=== PATIENT | male | born 1935 | race Caucasian/White ===

== ENCOUNTER → 2017-07-23 09:23 | Outpatient (CLI) | payer MEDICARE, SELFPAY ==
[2017-07-23 12:19] LABS: Absolute Lymphocyte Count 1.07 X10^3/ul (0.83-4.51); Absolute Neutrophil Count 1.6 X10^3/uL (2.0-7.7); Basophil# 0.03 X10^3/uL; Basophil% 0.9 % (0-1); Eosinophil# 0.13 X10^3/uL; Eosinophils% 3.9 % (0-5); Hematocrit 42.8 % (40-54); Hemoglobin 14.1 g/dl (13.0-16.5); Lymphocyte # 1.07 X10^3/ul (4.0); Mean Corp Hgb Conc 32.9 g/gl (32-36); Mean Corpuscular Hgb 33.5 pg (27.0-32.0); Mean Corpuscular Volume 101.7 fL (80-94); Mean Platelet Vol. 10.8 fl (6.2-12.0); Monocyte# 0.47 X10^3/uL; Monocyte% 14.1 % (0-10); Neutrophil # 1.63 X10^3/uL (2.7-7.7); Neutrophil % 48.8 % (47-70); Platelet Count 111 K/mm3 (150-450); RBC Distribution Width CV 12.7 % (11.6-14.6); RBC Distribution Width SD 47.1 fl (35.1-43.9); Red Blood Count 4.21 M/mm3 (4.6-6.2); White Blood Count 3.3 K/mm3 (4.4-11.0)
[2017-07-23 12:26] LABS: POSITIVE COUNT NO; POSITIVE DIFFERENTIAL NO; POSITIVE MORPHOLOGY NO
[2017-07-23 12:38] LABS: ALB/GLOB Ratio 1.4 RATIO (0.9-2.4); AST(SGOT) 19 U/L (15-37); Alanine Aminotransfer ALT/SGPT 22 U/L (16-61); Albumin, Serum 3.9 g/dL (3.2-5.0); Alkaline Phosphatase 62 U/L (45-117); Anion Gap 7 (5-15); BUN 17 mg/dL (7-18); BUN/Creat Ratio 14.9 RATIO (10-20); Calcium,Total 8.6 mg/dL (8.5-10.1); Chloride 109 mmol/L (98-107); Creatinine, Serum 1.14 mg/dL (0.70-1.30); EST Glomerular Filtration Rate 65 mL/min (>60); Est Glom Filt Rate - Afr Amer 79 mL/min (>60); Globulin 2.7 g/dL (2.2-4.2); Glucose 95 mg/dL (74-106); Potassium 4.4 mmol/L (3.5-5.1); Protein, Total 6.6 g/dL (6.4-8.2); Sodium Level 143 mmol/L (136-145)
== END ==
PROVIDERS: Family Provider Family Medicine Geriatric Medicine; PCP Family Medicine Geriatric Medicine; Visit Provider Internal Medicine Rheumatology
DX: M06.4 Inflammatory polyarthropathy (principal); M18.0 Bilateral primary osteoarthritis of first carpometacarpal joints; E78.5 Hyperlipidemia, unspecified; G47.33 Obstructive sleep apnea (adult) (pediatric); Z79.899 Other long term (current) drug therapy; Z86.718 Personal history of other venous thrombosis and embolism
CPT/HCPCS: 36415; 80053; 85025

== ENCOUNTER → 2017-08-09 11:23 | Outpatient (CLI) | payer MEDICARE, SELFPAY ==
[2017-08-09 13:07] LABS: Absolute Lymphocyte Count 1.01 X10^3/ul (0.83-4.51); Absolute Neutrophil Count 2.2 X10^3/uL (2.0-7.7); Basophil# 0.03 X10^3/uL; Basophil% 0.8 % (0-1); Eosinophil# 0.11 X10^3/uL; Eosinophils% 2.8 % (0-5); Hematocrit 40.5 % (40-54); Hemoglobin 13.7 g/dl (13.0-16.5); Lymphocyte # 1.01 X10^3/ul (4.0); Lymphocyte % 25.9 % (19-41); Mean Corp Hgb Conc 33.8 g/gl (32-36); Mean Corpuscular Hgb 34.3 pg (27.0-32.0); Mean Corpuscular Volume 101.5 fL (80-94); Mean Platelet Vol. 10.9 fl (6.2-12.0); Monocyte# 0.55 X10^3/uL; Monocyte% 14.1 % (0-10); Neutrophil % 56.4 % (47-70); Platelet Count 114 K/mm3 (150-450); RBC Distribution Width CV 12.1 % (11.6-14.6); RBC Distribution Width SD 44.5 fl (35.1-43.9); Red Blood Count 3.99 M/mm3 (4.6-6.2); White Blood Count 3.9 K/mm3 (4.4-11.0)
[2017-08-09 13:10] LABS: POSITIVE COUNT NO; POSITIVE DIFFERENTIAL NO; POSITIVE MORPHOLOGY NO
[2017-08-09 13:17] LABS: ALB/GLOB Ratio 1.4 RATIO (0.9-2.4); AST(SGOT) 20 U/L (15-37); Alanine Aminotransfer ALT/SGPT 21 U/L (16-61); Albumin, Serum 3.8 g/dL (3.2-5.0); Alkaline Phosphatase 71 U/L (45-117); Anion Gap 6 (5-15); BUN 22 mg/dL (7-18); BUN/Creat Ratio 17.3 RATIO (10-20); Calcium,Total 8.6 mg/dL (8.5-10.1); Chloride 107 mmol/L (98-107); Creatinine, Serum 1.27 mg/dL (0.70-1.30); EST Glomerular Filtration Rate 58 mL/min (>60); Est Glom Filt Rate - Afr Amer 70 mL/min (>60); Globulin 2.8 g/dL (2.2-4.2); Glucose 92 mg/dL (74-106); Potassium 4.6 mmol/L (3.5-5.1); Protein, Total 6.6 g/dL (6.4-8.2); Sodium Level 138 mmol/L (136-145)
[2017-08-10 10:29] LABS: Vitamin D,25 Hydroxy 32.7 ng/mL (29.95-100.01)
== END ==
PROVIDERS: Family Provider Family Medicine Geriatric Medicine; PCP Family Medicine Geriatric Medicine; Visit Provider Family Medicine Geriatric Medicine
DX: E23.6 Other disorders of pituitary gland (principal); E55.9 Vitamin D deficiency, unspecified; R53.83 Other fatigue
CPT/HCPCS: 36415; 80053; 82306; 84403; 84443; 85025

== ENCOUNTER → 2017-09-05 11:33 | Outpatient (CLI) | payer MEDICARE, SELFPAY ==
--- NOTE | 2017-09-05 11:37 | RAD_ITS ---
STUDY: X-RAY - LUMBAR SPINE REASON FOR EXAM: Male, 81 years old. Low back pain. TECHNIQUE: 3 view(s) of the lumbar spine were obtained. COMPARISON: 11/21/2012 FINDINGS: There is straightening. There is normal alignment. There is mild scoliosis to the right. There are no compression fractures or acute abnormalities. There is moderate to severe multilevel degenerative disc disease that appears worse than prior exam. There is multilevel facet joint degenerative disease. RAD/Lumbar Spine 2 or 3 Views IMPRESSION: No acute abnormality. Multilevel moderate to severe degenerative changes. Electronically Signed: Jose Moraes MD at 20:19 EDT , Service support ,
== END ==
PROVIDERS: Family Provider Family Medicine Geriatric Medicine; PCP Family Medicine Geriatric Medicine; Visit Provider Anesthesiology Pain Medicine
DX: M54.9 Dorsalgia, unspecified (principal); M79.669 Pain in unspecified lower leg
CPT/HCPCS: 72100

== ENCOUNTER → 2018-01-07 10:16 | Outpatient (CLI) | payer MEDICARE, SELFPAY ==
[2018-01-07 12:19] LABS: Absolute Lymphocyte Count 1.03 X10^3/ul (0.83-4.51); Absolute Neutrophil Count 2.3 X10^3/uL (2.0-7.7); Basophil# 0.03 X10^3/uL; Basophil% 0.7 % (0-1); Eosinophil# 0.17 X10^3/uL; Eosinophils% 4.1 % (0-5); Hematocrit 44.8 % (40-54); Hemoglobin 14.8 g/dl (13.0-16.5); Lymphocyte # 1.03 X10^3/ul (4.0); Lymphocyte % 25.1 % (19-41); Mean Corpuscular Hgb 33.6 pg (27.0-32.0); Mean Corpuscular Volume 101.6 fL (80-94); Mean Platelet Vol. 11.1 fl (6.2-12.0); Monocyte# 0.57 X10^3/uL; Monocyte% 13.9 % (0-10); Neutrophil # 2.29 X10^3/uL (2.7-7.7); Neutrophil % 55.7 % (47-70); Platelet Count 115 K/mm3 (150-450); RBC Distribution Width CV 12.7 % (11.6-14.6); RBC Distribution Width SD 46.9 fl (35.1-43.9); Red Blood Count 4.41 M/mm3 (4.6-6.2); White Blood Count 4.1 K/mm3 (4.4-11.0)
[2018-01-07 12:22] LABS: POSITIVE COUNT NO; POSITIVE DIFFERENTIAL NO; POSITIVE MORPHOLOGY NO
[2018-01-07 12:55] LABS: ALB/GLOB Ratio 1.2 RATIO (0.9-2.4); AST(SGOT) 21 U/L (15-37); Alanine Aminotransfer ALT/SGPT 21 U/L (16-61); Albumin, Serum 3.6 g/dL (3.2-5.0); Alkaline Phosphatase 73 U/L (45-117); Anion Gap 6 (5-15); BUN 16 mg/dL (7-18); BUN/Creat Ratio 13.2 RATIO (10-20); Calcium,Total 8.5 mg/dL (8.5-10.1); Chloride 105 mmol/L (98-107); Creatinine, Serum 1.21 mg/dL (0.70-1.30); EST Glomerular Filtration Rate 61 mL/min (>60); Est Glom Filt Rate - Afr Amer 74 mL/min (>60); Glucose 100 mg/dL (74-106); Potassium 4.3 mmol/L (3.5-5.1); Protein, Total 6.6 g/dL (6.4-8.2); Sodium Level 140 mmol/L (136-145)
== END ==
PROVIDERS: Family Provider Family Medicine Geriatric Medicine; PCP Family Medicine Geriatric Medicine; Referring Provider Internal Medicine Rheumatology; Visit Provider Internal Medicine Rheumatology
DX: M06.4 Inflammatory polyarthropathy (principal); M18.0 Bilateral primary osteoarthritis of first carpometacarpal joints; E78.5 Hyperlipidemia, unspecified; G47.33 Obstructive sleep apnea (adult) (pediatric); Z86.718 Personal history of other venous thrombosis and embolism
CPT/HCPCS: 36415; 80053; 85025

== ENCOUNTER → 2018-02-01 10:04 | Outpatient (CLI) | payer MEDICARE, SELFPAY ==
[2018-02-01 12:07] LABS: Absolute Lymphocyte Count 0.88 X10^3/ul (0.83-4.51); Absolute Neutrophil Count 1.6 X10^3/uL (2.0-7.7); Basophil# 0.04 X10^3/uL; Basophil% 1.4 % (0-1); Eosinophil# 0.06 X10^3/uL; Eosinophils% 2.1 % (0-5); Hematocrit 47.1 % (40-54); Hemoglobin 15.3 g/dl (13.0-16.5); Lymphocyte # 0.88 X10^3/ul (4.0); Lymphocyte % 30.2 % (19-41); Mean Corp Hgb Conc 32.5 g/gl (32-36); Mean Corpuscular Hgb 33.4 pg (27.0-32.0); Mean Corpuscular Volume 102.8 fL (80-94); Mean Platelet Vol. 11.4 fl (6.2-12.0); Monocyte# 0.36 X10^3/uL; Monocyte% 12.4 % (0-10); Neutrophil # 1.56 X10^3/uL (2.7-7.7); Neutrophil % 53.6 % (47-70); Platelet Count 117 K/mm3 (150-450); RBC Distribution Width CV 13.2 % (11.6-14.6); RBC Distribution Width SD 49.2 fl (35.1-43.9); Red Blood Count 4.58 M/mm3 (4.6-6.2); White Blood Count 2.9 K/mm3 (4.4-11.0)
[2018-02-01 12:17] LABS: POSITIVE COUNT NO; POSITIVE DIFFERENTIAL NO; POSITIVE MORPHOLOGY NO
[2018-02-01 12:22] LABS: Vitamin D,25 Hydroxy 26.8 ng/mL (29.95-100.01)
[2018-02-01 12:26] LABS: ALB/GLOB Ratio 1.4 RATIO (0.9-2.4); AST(SGOT) 20 U/L (15-37); Alanine Aminotransfer ALT/SGPT 29 U/L (16-61); Albumin, Serum 3.9 g/dL (3.2-5.0); Alkaline Phosphatase 65 U/L (45-117); Anion Gap 8 (5-15); BUN 30 mg/dL (7-18); BUN/Creat Ratio 19.7 RATIO (10-20); Calcium,Total 8.6 mg/dL (8.5-10.1); Chloride 108 mmol/L (98-107); Creatinine, Serum 1.52 mg/dL (0.70-1.30); EST Glomerular Filtration Rate 47 mL/min (>60); Est Glom Filt Rate - Afr Amer 57 mL/min (>60); Globulin 2.7 g/dL (2.2-4.2); Glucose 97 mg/dL (74-106); Potassium 4.5 mmol/L (3.5-5.1); Protein, Total 6.6 g/dL (6.4-8.2); Sodium Level 143 mmol/L (136-145); Thyroid Stim Hormone (TSH) 2.12 uIU/mL (0.358-3.74)
== END ==
PROVIDERS: Family Provider Family Medicine Geriatric Medicine; PCP Family Medicine Geriatric Medicine; Visit Provider Family Medicine Geriatric Medicine
DX: E23.6 Other disorders of pituitary gland (principal); E55.9 Vitamin D deficiency, unspecified; R53.83 Other fatigue
CPT/HCPCS: 36415; 80053; 82306; 84403; 84443; 85025

== ENCOUNTER → 2018-02-05 15:49 | Outpatient (CLI) | payer MEDICARE, SELFPAY ==
--- NOTE | 2018-02-05 | LES_PTH ---
PATIENT: BRY VO LOC: [facility] U#:[id number] AGE/SX: 89/M ROOM: RE02/05/[address]: Dr. Arpit Parkinson MD : 1935 BED: DIS: SPEC #: [id number] RECD: 02/05/18 10:29 STATUS: ADAM DON #: [id number] RADHA: 02/05/18 00:[address]: Arpit Parkinson Chi DEPT: SURGICAL PATHOLOGY RECD BY: Mina Landis Tissues: Skin of forearm, NOS Procedures: Surgery Specimen Level IV HEADER OPERATION: Not noted PRE-OP DIAGNOSIS: L98.9 TISSUE SUBMITTED: Left forearm MICROSCOPIC DIAGNOSIS Left forearm lesion, shave biopsy: Basal cell carcinoma with focal ulceration and associated inflammation, narrowly excised in the planes of sections examined. Solar elastosis. SJ:roxanne 02/08/18 MICROSCOPIC DESCRIPTION Slides are reviewed. GROSS DESCRIPTION Received in fixative is one container labeled with the patient's name and designated left forearm. The specimen consists of a shave biopsy of russell-white skin measuring 1 x 0.7 cm and 0.1 cm in thickness. The specimen is inked and submitted entirely in one cassette. It will be serially sectioned at the time of embedding. / SJ:roxanne 02/06/18 TC:0 [facility]: [id number]
== END ==
PROVIDERS: Family Provider Family Medicine Geriatric Medicine; PCP Family Medicine Geriatric Medicine; Visit Provider Family Medicine Geriatric Medicine
DX: C44.619 Basal cell carcinoma of skin of left upper limb, including shoulder (principal); L98.9 Disorder of the skin and subcutaneous tissue, unspecified
CPT/HCPCS: 88305

== ENCOUNTER → 2018-07-15 14:53 | Outpatient (CLI) | payer MEDICARE, SELFPAY ==
[2018-07-15 16:15] LABS: Absolute Lymphocyte Count 1.16 X10^3/ul (0.83-4.51); Absolute Neutrophil Count 2.1 X10^3/uL (2.0-7.7); Basophil# 0.05 X10^3/uL; Basophil% 1.3 % (0-1); Eosinophil# 0.18 X10^3/uL; Eosinophils% 4.6 % (0-5); Hematocrit 43.2 % (40-54); Lymphocyte # 1.16 X10^3/ul (4.0); Lymphocyte % 29.5 % (19-41); Mean Corp Hgb Conc 32.4 g/gl (32-36); Mean Corpuscular Hgb 33.2 pg (27.0-32.0); Mean Corpuscular Volume 102.4 fL (80-94); Mean Platelet Vol. 11.1 fl (6.2-12.0); Monocyte# 0.46 X10^3/uL; Monocyte% 11.7 % (0-10); Neutrophil # 2.07 X10^3/uL (2.7-7.7); Neutrophil % 52.6 % (47-70); Platelet Count 133 K/mm3 (150-450); RBC Distribution Width CV 13.3 % (11.6-14.6); RBC Distribution Width SD 50.1 fl (35.1-43.9); Red Blood Count 4.22 M/mm3 (4.6-6.2); White Blood Count 3.9 K/mm3 (4.4-11.0)
[2018-07-15 16:30] LABS: Vitamin D,25 Hydroxy 25.7 ng/mL (29.95-100.01)
[2018-07-15 16:33] LABS: ALB/GLOB Ratio 1.5 RATIO (0.9-2.4); AST(SGOT) 19 U/L (15-37); Alanine Aminotransfer ALT/SGPT 26 U/L (16-61); Albumin, Serum 4.1 g/dL (3.2-5.0); Alkaline Phosphatase 67 U/L (45-117); Anion Gap 6 (5-15); BUN 25 mg/dL (7-18); BUN/Creat Ratio 18.5 RATIO (10-20); Calcium,Total 8.8 mg/dL (8.5-10.1); Chloride 110 mmol/L (98-107); Creatinine, Serum 1.35 mg/dL (0.70-1.30); EST Glomerular Filtration Rate 54 mL/min (>60); Est Glom Filt Rate - Afr Amer 65 mL/min (>60); Globulin 2.7 g/dL (2.2-4.2); Glucose 100 mg/dL (74-106); Potassium 4.5 mmol/L (3.5-5.1); Protein, Total 6.8 g/dL (6.4-8.2); Sodium Level 143 mmol/L (136-145); Thyroid Stim Hormone (TSH) 1.53 uIU/mL (0.358-3.74)
[2018-07-15 16:36] LABS: POSITIVE COUNT NO; POSITIVE DIFFERENTIAL NO; POSITIVE MORPHOLOGY NO
== END ==
PROVIDERS: Family Provider Family Medicine Geriatric Medicine; PCP Family Medicine Geriatric Medicine; Visit Provider Family Medicine Geriatric Medicine
DX: E55.9 Vitamin D deficiency, unspecified (principal); R53.83 Other fatigue; E29.1 Testicular hypofunction; M06.4 Inflammatory polyarthropathy; M18.0 Bilateral primary osteoarthritis of first carpometacarpal joints; E78.5 Hyperlipidemia, unspecified; M47.897 Other spondylosis, lumbosacral region; G47.33 Obstructive sleep apnea (adult) (pediatric); Z86.718 Personal history of other venous thrombosis and embolism
CPT/HCPCS: 36415; 80053; 82306; 84403; 84443; 85025

== ENCOUNTER → 2019-01-06 11:15 | Outpatient (CLI) | payer MEDICARE, SELFPAY ==
[2018-09-12 11:37] VITALS: BMI 25.9
[2019-01-06 12:32] LABS: Basophil# 0.05 X10^3/uL; Basophil% 1.3 % (0-1); Eosinophil# 0.14 X10^3/uL; Eosinophils% 3.7 % (0-5); Hematocrit 48.3 % (40-54); Hemoglobin 15.5 g/dL (13.0-16.5); Lymphocyte % 29.1 % (19-41); Mean Corp Hgb Conc 32.1 g/dL (32-36); Mean Corpuscular Hgb 33.3 pg (27.0-32.0); Mean Corpuscular Volume 103.6 fL (80-94); Mean Platelet Vol. 10.7 fl (6.2-12.0); Monocyte# 0.52 X10^3/uL; Monocyte% 13.8 % (0-10); NRBC Flagged by Analyzer 0 % (0-5); Neutrophil # 1.95 X10^3/uL (2.7-7.7); Neutrophil % 51.6 % (47-70); Platelet Count 106 K/mm3 (150-450); RBC Distribution Width CV 13.2 % (11.6-14.6); RBC Distribution Width SD 50.4 fl (35.1-43.9); Red Blood Count 4.66 M/mm3 (4.6-6.2); White Blood Count 3.8 K/mm3 (4.4-11.0)
[2019-01-06 13:08] LABS: Vitamin D,25 Hydroxy 25.6 ng/mL (29.95-100.01)
[2019-01-06 13:09] LABS: ALB/GLOB Ratio 1.3 RATIO (0.9-2.4); AST(SGOT) 21 U/L (15-37); Alanine Aminotransfer ALT/SGPT 24 U/L (16-61); Albumin, Serum 3.7 g/dL (3.2-5.0); Alkaline Phosphatase 62 U/L (45-117); Anion Gap 4 (5-15); BUN 24 mg/dL (7-18); BUN/Creat Ratio 17.4 RATIO (10-20); Calcium,Total 8.8 mg/dL (8.5-10.1); Chloride 107 mmol/L (98-107); Cholesterol 143 mg/dL (200); Creatinine, Serum 1.38 mg/dL (0.70-1.30); EST Glomerular Filtration Rate 52 mL/min (>60); Est Glom Filt Rate - Afr Amer 63 mL/min (>60); Globulin 2.8 g/dL (2.2-4.2); Glucose 104 mg/dL (74-106); High Density Lipoprotein 66 mg/dL; Potassium 5.3 mmol/L (3.5-5.1); Protein, Total 6.5 g/dL (6.4-8.2); Sodium Level 139 mmol/L (136-145); Thyroid Stim Hormone (TSH) 2.54 uIU/mL (0.358-3.74); Triglycerides 70 mg/dL; Uric Acid 7.2 mg/dL (3.5-7.2); Very Low Density Lipoprotein 14 mg/dL (5-40)
== END ==
PROVIDERS: Family Provider Family Medicine Geriatric Medicine; PCP Family Medicine Geriatric Medicine; Visit Provider Family Medicine Geriatric Medicine
DX: E78.5 Hyperlipidemia, unspecified (principal); E23.6 Other disorders of pituitary gland; E55.9 Vitamin D deficiency, unspecified; M10.9 Gout, unspecified; R53.83 Other fatigue
CPT/HCPCS: 36415; 80053; 80061; 82306; 84403; 84443; 84550; 85025

== ENCOUNTER → 2019-01-08 13:49 | Outpatient (CLI) | payer MEDICARE, SELFPAY ==
[2018-09-12 11:37] VITALS: BMI 25.9
[2019-01-08 18:12] LABS: Anion Gap 5 (5-15); BUN 25 mg/dL (7-18); BUN/Creat Ratio 17.1 RATIO (10-20); Calcium,Total 8.5 mg/dL (8.5-10.1); Chloride 106 mmol/L (98-107); Creatinine, Serum 1.46 mg/dL (0.70-1.30); EST Glomerular Filtration Rate 49 mL/min (>60); Est Glom Filt Rate - Afr Amer 59 mL/min (>60); Glucose 106 mg/dL (74-106); Potassium 4.4 mmol/L (3.5-5.1); Sodium Level 140 mmol/L (136-145)
== END ==
PROVIDERS: Family Provider Family Medicine Geriatric Medicine; PCP Family Medicine Geriatric Medicine; Visit Provider Family Medicine Geriatric Medicine
DX: R53.83 Other fatigue (principal)
CPT/HCPCS: 36415; 80048

== ENCOUNTER → 2019-01-22 13:54 | Outpatient (CLI) | payer MEDICARE, SELFPAY ==
[2018-09-12 11:37] VITALS: BMI 25.9
[2019-01-22 15:26] LABS: Anion Gap 9 (5-15); BUN 26 mg/dL (7-18); BUN/Creat Ratio 17.2 RATIO (10-20); Calcium,Total 8.4 mg/dL (8.5-10.1); Chloride 107 mmol/L (98-107); Creatinine, Serum 1.51 mg/dL (0.70-1.30); EST Glomerular Filtration Rate 47 mL/min (>60); Est Glom Filt Rate - Afr Amer 57 mL/min (>60); Glucose 104 mg/dL (74-106); Potassium 4.5 mmol/L (3.5-5.1); Sodium Level 138 mmol/L (136-145)
== END ==
PROVIDERS: Family Provider Family Medicine Geriatric Medicine; PCP Family Medicine Geriatric Medicine; Visit Provider Family Medicine Geriatric Medicine
DX: E87.5 Hyperkalemia (principal)
CPT/HCPCS: 36415; 80048

== ENCOUNTER → 2019-07-01 14:03 | Outpatient (CLI) | payer MEDICARE, SELFPAY ==
[2018-09-12 11:37] VITALS: BMI 25.9
[2019-07-01 16:39] LABS: Absolute Lymphocyte Count 1.05 X10^3/uL (0.83-4.51); Absolute Neutrophil Count 2.6 X10^3/uL (2.0-7.7); Basophil# 0.04 X10^3/uL; Basophil% 0.9 % (0-1); Eosinophil# 0.11 X10^3/uL; Eosinophils% 2.6 % (0-5); Hematocrit 43.8 % (40-54); Hemoglobin 14.4 g/dL (13.0-16.5); Lymphocyte # 1.05 X10^3/ul (4.0); Lymphocyte % 24.6 % (19-41); Mean Corp Hgb Conc 32.9 g/dL (32-36); Mean Corpuscular Volume 103.3 fL (80-94); Mean Platelet Vol. 10.7 fl (6.2-12.0); Monocyte# 0.44 X10^3/uL; Monocyte% 10.3 % (0-10); NRBC Flagged by Analyzer 0 % (0-5); Neutrophil # 2.61 X10^3/uL (2.7-7.7); Neutrophil % 61.1 % (47-70); Platelet Count 138 K/mm3 (150-450); RBC Distribution Width CV 12.8 % (11.6-14.6); RBC Distribution Width SD 48.7 fl (35.1-43.9); Red Blood Count 4.24 M/mm3 (4.6-6.2); White Blood Count 4.3 K/mm3 (4.4-11.0)
[2019-07-01 16:50] LABS: Anion Gap 7 (5-15); BUN 18 mg/dL (7-18); BUN/Creat Ratio 15.3 RATIO (10-20); Calcium,Total 8.6 mg/dL (8.5-10.1); Chloride 106 mmol/L (98-107); Creatinine, Serum 1.18 mg/dL (0.70-1.30); EST Glomerular Filtration Rate 62 mL/min (>60); Est Glom Filt Rate - Afr Amer 76 mL/min (>60); Glucose 123 mg/dL (74-106); Potassium 4.4 mmol/L (3.5-5.1); Sodium Level 139 mmol/L (136-145)
== END ==
PROVIDERS: PCP Family Medicine Geriatric Medicine; Visit Provider Family Medicine Geriatric Medicine
DX: R42 Dizziness and giddiness (principal)
CPT/HCPCS: 36415; 80048; 85025

== ENCOUNTER → 2019-07-01 15:22 | Outpatient (CLI) | payer MEDICARE, SELFPAY ==
[2018-09-12 11:37] VITALS: BMI 25.9
--- NOTE | 2019-07-01 15:27 | CT_ITS ---
STUDY: CT BRAIN WITHOUT CONTRAST REASON FOR EXAM: Male, 83 years old. DIZZINESS RADIATION DOSAGE (If Supplied By Facility): CTDIvol = ( 44.99 ) mGy, DLP = ( 829.85 ) mGycm TECHNIQUE: Transaxial CT imaging of the brain was performed without administration of intravenous contrast material. Individualized dose optimization techniques were used for this CT. COMPARISON: Comparison is made with prior study dated September 21, 2016. FINDINGS: Normal soft tissue structures. Normal calvarium. There is mild cerebral atrophy with widening of the extra-axial spaces and ventricular dilatation. Normal white matter tracts of the cerebral hemispheres. Normal basal ganglia and thalami. Normal brainstem. Normal cerebellum. There is no intracranial hemorrhage. There are no findings of an acute ischemic infarction. Normal visualized paranasal sinuses. CT/Brain/Head without Contrast IMPRESSION: Chronic involutional changes of the brain. Electronically Signed: Kishor Marie, at 15:51 EDT , Service support ,
== END ==
PROVIDERS: PCP Family Medicine Geriatric Medicine; Referring Provider Family Medicine Geriatric Medicine; Visit Provider Family Medicine Geriatric Medicine
DX: R42 Dizziness and giddiness (principal)
CPT/HCPCS: 36415; 70450; 80048; 85025

== ENCOUNTER → 2019-07-15 17:18 | Outpatient (CLI) | payer MEDICARE, SELFPAY ==
[2018-09-12 11:37] VITALS: BMI 25.9
--- NOTE | 2019-07-15 17:23 | MRI_ITS ---
STUDY: MRI BRAIN WITH AND WITHOUT CONTRAST REASON FOR EXAM: Male, 83 years old. ataxia and blurred vision x 2 months TECHNIQUE: Standardized multiplanar fat and water weighted pulse sequences were obtained. 15ml Dotarem via IV was administered for the contrast portion of the examination. COMPARISON: October 10, 2016 CT of the brain July 01, 2019 FINDINGS: Moderate atrophy and minor periventricular white matter ischemic changes without mass effect or restricted diffusion.. Normal bilateral basal ganglia. Normal thalami. There is no extra-axial fluid accumulation. Normal flow voids within the major intracranial circulation suggesting patency by spin echo criteria. Normal venous enhancement. There is no enhancing intra-axial or extra-axial abnormality. Normal sella turcica, pituitary gland, infundibular stalk, optic chiasm and hypothalamus. Normal tectal plate and pineal gland. Empty sella deformity of uncertain clinical significance Normal midbrain, geovanny and medulla. Normal cerebellum. Normal basal cisterns. Normal bilateral temporal bones. Normal bilateral internal auditory canals. Fluid signal noted within the mastoid air cells bilaterally greater on the right consistent with inflammatory disease Postsurgical changes of the orbits.. Minor mucosal thickening of the maxillary and ethmoid sinuses bilaterally.. Normal calvarium and skull base. Normal visualized soft tissue structures. Normal visualized upper cervical spine. MRI/Brain W/WO Contrast IMPRESSION: Moderate atrophy and mild periventricular white matter ischemic changes without evidence for acute infarct. No no enhancing lesions. Specifically no evidence for acoustic or vestibular schwannoma. Incidental finding of bilateral mastoiditis greater on the right Electronically Signed: Simeon Cornell MD at 19:37 EDT , Service support ,
[2019-07-15 17:51] LABS: CREATININE FINGERSTICK 1.1 mg/dL (0.70-1.30); EGFR FINGERSTICK > 60.0000 mL/min (>60)
== END ==
PROVIDERS: PCP Family Medicine Geriatric Medicine; Referring Provider Otolaryngology; Visit Provider Otolaryngology
DX: R27.0 Ataxia, unspecified (principal)
CPT/HCPCS: 70553; A9575

== ENCOUNTER 2019-07-24 13:00 | Outpatient (RCR) | payer MEDICARE, SELFPAY ==
[2018-09-12 11:37] VITALS: BMI 25.9
--- NOTE | 2019-07-18 14:12 | HP.PTEVAL ---
Patient's Visit Information BRY VO is a 83 year old M referred to Physical Therapy by Jose Roman MD with a diagnosis of dizzyness. Date of Evaluation: 07/18/19 Physical Therapist: Mick Conway, MATTHEW, OCS, CSCS - Visit Plan Frequency: 1x/Week Duration: 4-6 Weeks Plan: weekly x 4-6 for. progression of adaptation exercises via HEP and monitor MSQ/balance as needed. - Subjective I am dizzy. All the time, has been that way two months. Had pneumonia in [place] quickly and got dizzy afterwards. It is up and down. Not spinning but dizzy described aas lightheaded blurriness.. Moving seems to be worse. Slight when he is not moving. Not worse with lying or sitting. No falls, feels unsteady at times. No cane or walker. It can be wrose after grocery store. - Pain Dizzy Pain Intensity (Out of 10): 5 Pain Intensity Range: 5, 6 - Objective Balance is good for his age. Trasnfers , gait and steps are normal. Oculomotor: VOR causes symptoms 7/10 x 20 seconds. Saccades slightly worse for 5 sec. Pursuit is normal. - skew eye deviation,- ocular tilt. no nystagmus with gaze or head shake. MSQ is no problem with any increasing his symptoms. 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 For Medicare and Medicare HMO plans, please review the plan of care and approve it. It will need to be FAXED BACK to us at [phone] for Medicare purposes. For Medicare only, by signing this I certify the plan of care. Please let me know if there are questions or concerns regarding this plan of care. Physician Signature: Date:
--- NOTE | 2019-10-02 11:10 | HP.PT.NRP ---
BRY VO was seen in my office for initial evaluation on 07/18/19. The following Plan of Care was established for this patient: Initial Frequency: 1x/Week Initial Duration: 4-6 Weeks Patient/Client Instruction: Educate patient on: Condition, Plan of Care For the Purpose of:: To increase tolerance to activity/condition/position For the Purpose of:: To increase tolerance to activity/condition/position This patient was last seen in our office 07/24/19. Pertinent comments regarding their Physical therapy will appear below: Pt seen two visits without improvement in PT. Plan was to f/u a week later and get back to doctor if still no better. Pt did not show up for that visit. at this point, it has been over 2 months and I will discontinue due to nonattendance. At this point I will be discontinuing this patient from physical therapy. I would be happy to see this patient again in the future if found appropriate by the physician. Thank you! Mick Conway, DPT, OCS, CSCS
== END 2019-07-24 19:00 | disposition home or self-care (01) ==
LOC: PT 13:00
PROVIDERS: PCP Family Medicine Geriatric Medicine; Referring Provider Otolaryngology; Visit Provider Otolaryngology
DX: R42 Dizziness and giddiness (principal)
CPT/HCPCS: 97110; 97161; 97530

== ENCOUNTER → 2019-08-20 10:05 | Outpatient (CLI) | payer MEDICARE, SELFPAY ==
[2018-09-12 11:37] VITALS: BMI 25.9
[2019-08-20 11:42] LABS: Absolute Lymphocyte Count 1.29 X10^3/uL (0.83-4.51); Absolute Neutrophil Count 1.8 X10^3/uL (2.0-7.7); Basophil# 0.05 X10^3/uL; Basophil% 1.3 % (0-1); Eosinophil# 0.17 X10^3/uL; Eosinophils% 4.5 % (0-5); Hematocrit 43.9 % (40-54); Hemoglobin 14.3 g/dL (13.0-16.5); Lymphocyte # 1.29 X10^3/ul (4.0); Lymphocyte % 33.8 % (19-41); Mean Corp Hgb Conc 32.6 g/dL (32-36); Mean Corpuscular Hgb 33.4 pg (27.0-32.0); Mean Corpuscular Volume 102.6 fL (80-94); Mean Platelet Vol. 10.6 fl (6.2-12.0); Monocyte# 0.48 X10^3/uL; Monocyte% 12.6 % (0-10); NRBC Flagged by Analyzer 0 % (0-5); Neutrophil # 1.82 X10^3/uL (2.7-7.7); Neutrophil % 47.5 % (47-70); Platelet Count 148 K/mm3 (150-450); RBC Distribution Width SD 45.7 fl (35.1-43.9); Red Blood Count 4.28 M/mm3 (4.6-6.2); White Blood Count 3.8 K/mm3 (4.4-11.0)
[2019-08-20 12:04] LABS: ALB/GLOB Ratio 1.4 RATIO (0.9-2.4); AST(SGOT) 15 U/L (15-37); Alanine Aminotransfer ALT/SGPT 21 U/L (16-61); Albumin, Serum 3.8 g/dL (3.2-5.0); Alkaline Phosphatase 73 U/L (45-117); Anion Gap 7 (5-15); BUN 27 mg/dL (7-18); BUN/Creat Ratio 18.6 RATIO (10-20); Calcium,Total 8.8 mg/dL (8.5-10.1); Chloride 105 mmol/L (98-107); Creatinine, Serum 1.45 mg/dL (0.70-1.30); EST Glomerular Filtration Rate 49 mL/min (>60); Est Glom Filt Rate - Afr Amer 60 mL/min (>60); Globulin 2.8 g/dL (2.2-4.2); Glucose 127 mg/dL (74-106); PSA,Total - Annual Screen 1.66 ng/mL (0.00-4.00); Potassium 4.7 mmol/L (3.5-5.1); Protein, Total 6.6 g/dL (6.4-8.2); Sodium Level 139 mmol/L (136-145); Thyroid Stim Hormone (TSH) 2.26 uIU/mL (0.358-3.74)
[2019-08-20 12:46] LABS: Vitamin D,25 Hydroxy 26.5 ng/mL
== END ==
PROVIDERS: PCP Family Medicine Geriatric Medicine; Visit Provider Family Medicine Geriatric Medicine
DX: E23.6 Other disorders of pituitary gland (principal); E55.9 Vitamin D deficiency, unspecified; M10.9 Gout, unspecified; R53.83 Other fatigue
CPT/HCPCS: 36415; 80053; 82306; 84153; 84443; 85025; G0103

== ENCOUNTER → 2019-09-29 13:45 | Outpatient (CLI) | payer MEDICARE, SELFPAY ==
[2018-09-12 11:37] VITALS: BMI 25.9
[2019-09-29 15:18] LABS: Absolute Lymphocyte Count 1.63 X10^3/uL (0.83-4.51); Absolute Neutrophil Count 2.7 X10^3/uL (2.0-7.7); Basophil# 0.06 X10^3/uL; Basophil% 1.2 % (0-1); Eosinophil# 0.09 X10^3/uL; Eosinophils% 1.8 % (0-5); Hematocrit 43.7 % (40-54); Hemoglobin 14.1 g/dL (13.0-16.5); Lymphocyte # 1.63 X10^3/ul (4.0); Lymphocyte % 31.7 % (19-41); Mean Corp Hgb Conc 32.3 g/dL (32-36); Mean Corpuscular Hgb 33.1 pg (27.0-32.0); Mean Corpuscular Volume 102.6 fL (80-94); Mean Platelet Vol. 11.1 fl (6.2-12.0); Monocyte# 0.63 X10^3/uL; Monocyte% 12.3 % (0-10); NRBC Flagged by Analyzer 0 % (0-5); Neutrophil # 2.71 X10^3/uL (2.7-7.7); Neutrophil % 52.6 % (47-70); Platelet Count 143 K/mm3 (150-450); RBC Distribution Width SD 45.1 fl (35.1-43.9); Red Blood Count 4.26 M/mm3 (4.6-6.2); White Blood Count 5.1 K/mm3 (4.4-11.0)
[2019-09-29 15:29] LABS: ALB/GLOB Ratio 1.4 RATIO (0.9-2.4); AST(SGOT) 18 U/L (15-37); Alanine Aminotransfer ALT/SGPT 21 U/L (16-61); Albumin, Serum 3.8 g/dL (3.2-5.0); Alkaline Phosphatase 93 U/L (45-117); Anion Gap 5 (5-15); BUN 26 mg/dL (7-18); Calcium,Total 8.6 mg/dL (8.5-10.1); Chloride 106 mmol/L (98-107); EST Glomerular Filtration Rate 56 mL/min (>60); Est Glom Filt Rate - Afr Amer 68 mL/min (>60); Globulin 2.8 g/dL (2.2-4.2); Glucose 96 mg/dL (74-106); Protein, Total 6.6 g/dL (6.4-8.2); Sodium Level 138 mmol/L (136-145)
== END ==
PROVIDERS: PCP Family Medicine Geriatric Medicine; Referring Provider Internal Medicine Rheumatology; Visit Provider Internal Medicine Rheumatology
DX: M06.4 Inflammatory polyarthropathy (principal); M18.0 Bilateral primary osteoarthritis of first carpometacarpal joints; E78.5 Hyperlipidemia, unspecified; G47.33 Obstructive sleep apnea (adult) (pediatric); M47.897 Other spondylosis, lumbosacral region; Z86.718 Personal history of other venous thrombosis and embolism
CPT/HCPCS: 36415; 80053; 85025

== ENCOUNTER → 2019-10-27 15:12 | Outpatient (CLI) | payer MEDICARE, SELFPAY ==
[2018-09-12 11:37] VITALS: BMI 25.9
--- NOTE | 2019-10-27 15:17 | US_ITS ---
STUDY: RENAL ULTRASOUND - COMPLETE REASON FOR EXAM: Male, 83 years old patient with chronic renal disease stage 3. TECHNIQUE: Ultrasound evaluation of the kidneys was performed with real-time and static montoya-scale imaging. COMPARISON: None. FINDINGS: RIGHT KIDNEY: Normal location of the right kidney, which is normal in size. The right kidney measures 10.0 x 4.4 x 4.9 cm. There is a normal cortex of the right kidney. The renal cortex measures 1.3 cm. There is no right renal mass or cyst. There are no right renal calculi. There is no right hydronephrosis. DISTAL RIGHT URETER: There is non-visualization of the distal right ureter. There is no demonstrated right ureterovesical junction calculus. There is no demonstrated right ureteral jet. LEFT KIDNEY: Normal location of the left kidney, which is normal in size. The left kidney measures 3.6 x 3.8 x 4.4 cm. There is diffuse thinning of the renal cortex. The renal cortex measures 0.8 cm. There is no left renal mass or cyst. There are no left renal calculi. There is no left hydronephrosis. DISTAL LEFT URETER: There is non-visualization of the distal left ureter. There is no demonstrated left ureterovesical junction calculus. There is a visualized left ureteral jet. AORTA: There is obscuration of the abdominal aorta by overlying bowel gas BLADDER: The distended urinary bladder has a volume of 279.8 ml. There is a normal wall thickness of the distended urinary bladder. There is no demonstrated mass within the urinary bladder. There are no demonstrated bladder calculi. US/Kidney and Bladder IMPRESSION: 1. Findings suggest sequela of the chronic left-sided renal insufficiency with atrophy. 2. No sonographic evidence for hydronephrosis. Electronically Signed: Kayy Zamora MD at 3:15 EDT , Service support ,
== END ==
PROVIDERS: PCP Family Medicine Geriatric Medicine; Referring Provider Internal Medicine Nephrology; Visit Provider Internal Medicine Nephrology
DX: N18.2 Chronic kidney disease, stage 2 (mild) (principal)
CPT/HCPCS: 76770

== ENCOUNTER → 2019-11-18 14:06 | Outpatient (CLI) | payer MEDICARE, SELFPAY ==
[2018-09-12 11:37] VITALS: BMI 25.9
[2019-11-18 15:49] LABS: Absolute Lymphocyte Count 1.21 X10^3/uL (0.83-4.51); Absolute Neutrophil Count 2.9 X10^3/uL (2.0-7.7); Basophil# 0.04 X10^3/uL; Basophil% 0.8 % (0-1); Eosinophil# 0.11 X10^3/uL; Eosinophils% 2.3 % (0-5); Hematocrit 41.4 % (40-54); Hemoglobin 14.3 g/dL (13.0-16.5); Lymphocyte # 1.21 X10^3/ul (4.0); Lymphocyte % 24.9 % (19-41); Mean Corp Hgb Conc 34.5 g/dL (32-36); Mean Corpuscular Hgb 35.2 pg (27.0-32.0); Mean Platelet Vol. 10.6 fl (6.2-12.0); Monocyte# 0.62 X10^3/uL; Monocyte% 12.8 % (0-10); NRBC Flagged by Analyzer 0 % (0-5); Neutrophil # 2.86 X10^3/uL (2.7-7.7); Neutrophil % 58.8 % (47-70); Platelet Count 152 K/mm3 (150-450); RBC Distribution Width CV 12.6 % (11.6-14.6); RBC Distribution Width SD 47.5 fl (35.1-43.9); Red Blood Count 4.06 M/mm3 (4.6-6.2); White Blood Count 4.9 K/mm3 (4.4-11.0)
[2019-11-18 16:11] LABS: Vitamin D,25 Hydroxy 39.8 ng/mL
[2019-11-18 16:19] LABS: ALB/GLOB Ratio 1.3 RATIO (0.9-2.4); AST(SGOT) 14 U/L (15-37); Alanine Aminotransfer ALT/SGPT 19 U/L (16-61); Albumin, Serum 3.7 g/dL (3.2-5.0); Alkaline Phosphatase 88 U/L (45-117); Anion Gap 3 (5-15); BUN 22 mg/dL (7-18); BUN/Creat Ratio 16.7 RATIO (10-20); Calcium,Total 8.8 mg/dL (8.5-10.1); Chloride 108 mmol/L (98-107); Creatinine, Serum 1.32 mg/dL (0.70-1.30); EST Glomerular Filtration Rate 55 mL/min (>60); Est Glom Filt Rate - Afr Amer 66 mL/min (>60); Globulin 2.8 g/dL (2.2-4.2); Glucose 114 mg/dL (74-106); Potassium 4.5 mmol/L (3.5-5.1); Protein, Total 6.5 g/dL (6.4-8.2); Sodium Level 140 mmol/L (136-145); Thyroid Stim Hormone (TSH) 2.38 uIU/mL (0.358-3.74); Uric Acid 6.3 mg/dL (3.5-7.2)
== END ==
PROVIDERS: Internal Medicine Nephrology; PCP Family Medicine Geriatric Medicine; Visit Provider Family Medicine Geriatric Medicine
DX: E23.6 Other disorders of pituitary gland (principal); E55.9 Vitamin D deficiency, unspecified; M10.9 Gout, unspecified; R53.83 Other fatigue
CPT/HCPCS: 36415; 80053; 82140; 82306; 84403; 84443; 84550; 85025

== ENCOUNTER → 2019-12-30 08:38 | Outpatient (CLI) | payer MEDICARE, SELFPAY ==
[2018-09-12 11:37] VITALS: BMI 25.9
--- NOTE | 2019-12-30 08:44 | CDU_ITS ---
Reason For Study: Dizziness Rt. Velocities/BP Lt. Velocities/BP Prox CCA 86.5/13.4 cm/sec. Prox CCA 90/13.9 cm/sec. Mid CCA 90.4/10.8 cm/sec. Mid CCA 77.7/12.6 cm/sec. Dist CCA 98.2/14.7 cm/sec. Dist CCA 83.9/15.1 cm/sec. Prox ICA 84.6/11.5 cm/sec. Prox ICA 79.1/15.2 cm/sec. Mid ICA 99.2/26.1 cm/sec. Mid ICA 88.2/17 cm/sec. Dist ICA 93.7/22.5 cm/sec. Dist ICA 71.6/17.6 cm/sec. Rt. ICA/CCA = 1.1. Lt. ICA/CCA = 1.1. Prox ECA 135.7/9.7 cm/sec. Prox ECA 80.2/7.7 cm/sec. Rt. Vert. 48.5/8.8 cm/sec. Lt. Vert. 60.8/11.3 cm/sec. Right Extracranial There is homogeneous, smooth atherosclerotic plaque noted in the right common carotid artery. There is heterogeneous, irregular atherosclerotic plaque noted in the right internal carotid artery. There is intimal thickening but no significant atherosclerotic plaque noted in the right external carotid artery. Antegrade flow is noted in the right vertebral artery. Left Extracranial There is homogeneous, smooth atherosclerotic plaque noted in the left common carotid artery. There is heterogeneous, irregular atherosclerotic plaque noted in the left internal carotid artery. There is intimal thickening but no significant atherosclerotic plaque noted in the left external carotid artery. Antegrade flow is noted in the left vertebral artery. There is heterogeneous, irregular atherosclerotic plaque noted in the left bulb. Procedure Carotid Duplex 14736. This is a Carotid Duplex examination using B-mode, color flow and specral Doppler. Exam performed in department. Interpretation Summary Mild (<50%) stenosis right extracranial internal carotid. Mild (<50%) stenosis left extracranial internal carotid. Flow within the vertebral arteries is antegrade bilaterally. Heterogeneous, irregular atherosclerotic plaque is noted in the left carotid bulb, which does not appear to be hemodynamically significant. Ordering Physician: Mick Joyner Referring Physician: Arpit Parkinson Chi Performed By: Claudia Mcfarland RVT
== END ==
PROVIDERS: PCP Family Medicine Geriatric Medicine; Referring Provider Otolaryngology; Visit Provider Otolaryngology
DX: R42 Dizziness and giddiness (principal)
CPT/HCPCS: 93880

== ENCOUNTER → 2020-01-27 12:52 | Outpatient (CLI) | payer MEDICARE, SELFPAY ==
[2020-01-14 15:19] VITALS: BMI 26.5
--- NOTE | 2020-01-27 12:55 | ECHOD_ITS ---
Reason For Study: ARRHYTHMIA Procedure This was a 2D Doppler, Color Flow transthoracic echocardiogram. Exam performed in department. Left Ventricle Normal LV size. The estimated ejection fraction is 50 %. Normal diastology for age. No regional wall motion abnormalities noted. Right Ventricle Normal RV size. Normal systolic function. Atria Normal left atrium. Normal right atrium. Mitral Valve Normal mitral valve. Trivial eccentric mitral valve insufficiency. Tricuspid Valve Normal tricuspid valve. Mild tricuspid valve insufficiency. Aortic Valve Trisinus/trileaflet aortic valve. Mild focal aortic valve calcification. Pulmonic Valve The pulmonic valve is not well visualized. Great Vessels Normal aortic root. The pulmonary artery is normal size. Normal inferior vena cava. Pericardium/Pleural No pericardial effusion. MMode/2D Measurements & Calculations LVIDd: 4.9 cm IVSd: 0.95 cm Ao root diam: 3.6 cm LVIDs: 3.5 cm LVPWd: 0.98 cm RVDd: 3.4 cm FS: 29.4 % LAV(MOD-bp): 57.3 ml EDV(MOD-sp4): 95.0 ml EDV(MOD-sp2): 83.5 ml LAV(MOD-bp) Indexed: 28.7 ml/m2 ESV(MOD-sp4): 47.6 ml EF(MOD-sp2): 55.6 % LAV(MOD-sp2): 51.7 ml EF(MOD-sp4): 49.9 % LAV(MOD-sp4): 64.7 ml SV(MOD-sp4): 47.4 ml SV(MOD-sp2): 46.4 ml LA A4 area: 21.1 cm2 LA dimension(2D): 3.8 cm RA A4 area: 14.9 cm2 Time Measurements MV dec time: 0.21 sec Doppler Measurements & Calculations MV E max aki: 55.6 cm/sec Lat Peak E' Aki: 7.9 cm/sec Med Peak E' Aki: 7.3 cm/sec MV A max aki: 49.4 cm/sec E/E' lat: 7.1 E/E' med: 7.6 MV E/A: 1.1 Ao V2 max: 97.4 cm/sec LV V1 max: 76.4 cm/sec PA V2 max: 78.8 cm/sec Ao max P.8 mmHg LV V1 max P.3 mmHg PI end-d aki: 70.5 cm/sec TR max aki: 222.9 cm/sec TR max P.9 mmHg Interpretation Summary Normal LV size. The estimated ejection fraction is 50 %. No regional wall motion abnormalities noted. Mild focal aortic valve calcification. Normal diastology for age. Ordering Physician: Alexey Weber Referring Physician: VON GUERRA Performed By: Marcela Gordillo, EDUARDO, RVT
== END ==
PROVIDERS: PCP Family Medicine Geriatric Medicine; Referring Provider Internal Medicine Cardiovascular Disease; Visit Provider Internal Medicine Cardiovascular Disease
DX: I35.8 Other nonrheumatic aortic valve disorders (principal); R42 Dizziness and giddiness; I49.9 Cardiac arrhythmia, unspecified
CPT/HCPCS: 93306

== ENCOUNTER → 2020-02-16 09:32 | Outpatient (CLI) | payer MEDICARE, SELFPAY ==
[2020-01-14 15:19] VITALS: BMI 26.5
[2020-02-16 12:06] LABS: Basophil# 0.04 X10^3/uL; Eosinophil# 0.15 X10^3/uL; Eosinophils% 3.9 % (0-5); Hematocrit 44.5 % (40-54); Hemoglobin 14.5 g/dL (13.0-16.5); Lymphocyte % 31.3 % (19-41); Mean Corp Hgb Conc 32.6 g/dL (32-36); Mean Corpuscular Hgb 33.4 pg (27.0-32.0); Mean Corpuscular Volume 102.5 fL (80-94); Mean Platelet Vol. 10.8 fl (6.2-12.0); Monocyte# 0.39 X10^3/uL; Monocyte% 10.2 % (0-10); NRBC Flagged by Analyzer 0 % (0-5); Neutrophil # 2.04 X10^3/uL (2.7-7.7); Neutrophil % 53.3 % (47-70); Platelet Count 150 K/mm3 (150-450); RBC Distribution Width CV 12.1 % (11.6-14.6); RBC Distribution Width SD 45.5 fl (35.1-43.9); Red Blood Count 4.34 M/mm3 (4.6-6.2); White Blood Count 3.8 K/mm3 (4.4-11.0)
[2020-02-16 12:11] LABS: Vitamin D,25 Hydroxy 24.9 ng/mL
[2020-02-16 12:18] LABS: ALB/GLOB Ratio 1.4 RATIO (0.9-2.4); AST(SGOT) 16 U/L (15-37); Alanine Aminotransfer ALT/SGPT 20 U/L (16-61); Albumin, Serum 3.8 g/dL (3.2-5.0); Alkaline Phosphatase 75 U/L (45-117); Anion Gap 5 (5-15); BUN 23 mg/dL (7-18); BUN/Creat Ratio 16.4 RATIO (10-20); Calcium,Total 8.8 mg/dL (8.5-10.1); Chloride 110 mmol/L (98-107); EST Glomerular Filtration Rate 51 mL/min (>60); Est Glom Filt Rate - Afr Amer 62 mL/min (>60); Globulin 2.7 g/dL (2.2-4.2); Glucose 97 mg/dL (74-106); Protein, Total 6.5 g/dL (6.4-8.2); Sodium Level 142 mmol/L (136-145); Thyroid Stim Hormone (TSH) 3.98 uIU/mL (0.358-3.74)
[2020-02-20 07:04] LABS: SARS-COV-2 TOTAL ABS Nonreactive (Nonreactive)
== END ==
PROVIDERS: PCP Family Medicine Geriatric Medicine; Visit Provider Family Medicine Geriatric Medicine
DX: E23.6 Other disorders of pituitary gland (principal); E55.9 Vitamin D deficiency, unspecified; R53.83 Other fatigue
CPT/HCPCS: 36415; 80053; 82306; 84403; 84443; 85025; 86769

== ENCOUNTER → 2020-02-24 09:21 | Outpatient (CLI) | payer MEDICARE, SELFPAY ==
[2020-02-16 15:35] VITALS: BMI 26.9
== END ==
PROVIDERS: PCP Family Medicine Geriatric Medicine; Referring Provider Nurse Practitioner Family; Visit Provider Nurse Practitioner Family
DX: R42 Dizziness and giddiness (principal)
CPT/HCPCS: 93225; 93226

== ENCOUNTER → 2020-03-31 10:24 | Outpatient (CLI) | payer MEDICARE, SELFPAY ==
[2020-02-16 15:35] VITALS: BMI 26.9
[2020-03-31 12:31] LABS: Thyroid Stim Hormone (TSH) 2.03 uIU/mL (0.358-3.74)
== END ==
PROVIDERS: PCP Family Medicine Geriatric Medicine; Visit Provider Family Medicine Geriatric Medicine
DX: E03.9 Hypothyroidism, unspecified (principal)
CPT/HCPCS: 36415; 84443

== ENCOUNTER 2020-04-08 10:00 | Outpatient (RCR) | payer MEDICARE, SELFPAY ==
[2020-02-16 15:35] VITALS: BMI 26.9
== END 2020-04-08 23:59 ==
LOC: IMMUN 10:00
PROVIDERS: PCP Family Medicine Geriatric Medicine; Visit Provider Family Medicine
DX: Z23 Encounter for immunization (principal)
CPT/HCPCS: 0011A; 0012A; 91301

== ENCOUNTER → 2020-05-17 09:22 | Outpatient (CLI) | payer MEDICARE, SELFPAY ==
[2020-02-16 15:35] VITALS: BMI 26.9
[2020-05-17 12:34] LABS: Absolute Lymphocyte Count 1.49 X10^3/uL (0.83-4.51); Absolute Neutrophil Count 2.3 X10^3/uL (2.0-7.7); Basophil# 0.06 X10^3/uL; Basophil% 1.3 % (0-1); Eosinophil# 0.22 X10^3/uL; Eosinophils% 4.7 % (0-5); Hematocrit 42.9 % (40-54); Hemoglobin 13.8 g/dL (13.0-16.5); Lymphocyte # 1.49 X10^3/ul (4.0); Lymphocyte % 31.8 % (19-41); Mean Corp Hgb Conc 32.2 g/dL (32-36); Mean Corpuscular Hgb 32.9 pg (27.0-32.0); Mean Corpuscular Volume 102.1 fL (80-94); Monocyte% 12.8 % (0-10); NRBC Flagged by Analyzer 0 % (0-5); Platelet Count 142 K/mm3 (150-450); RBC Distribution Width CV 12.5 % (11.6-14.6); RBC Distribution Width SD 46.7 fl (35.1-43.9); White Blood Count 4.7 K/mm3 (4.4-11.0)
[2020-05-17 12:50] LABS: Vitamin D,25 Hydroxy 24.6 ng/mL
[2020-05-17 13:07] LABS: ALB/GLOB Ratio 1.4 RATIO (0.9-2.4); AST(SGOT) 15 U/L (15-37); Alanine Aminotransfer ALT/SGPT 20 U/L (16-61); Albumin, Serum 3.7 g/dL (3.2-5.0); Alkaline Phosphatase 69 U/L (45-117); Anion Gap 8 (5-15); BUN 20 mg/dL (7-18); BUN/Creat Ratio 15.3 RATIO (10-20); Calcium,Total 8.7 mg/dL (8.5-10.1); Chloride 108 mmol/L (98-107); Creatinine, Serum 1.31 mg/dL (0.70-1.30); EST Glomerular Filtration Rate 55 mL/min (>60); Est Glom Filt Rate - Afr Amer 67 mL/min (>60); Globulin 2.7 g/dL (2.2-4.2); Glucose 89 mg/dL (74-106); Protein, Total 6.4 g/dL (6.4-8.2); Sodium Level 141 mmol/L (136-145); Thyroid Stim Hormone (TSH) 2.35 uIU/mL (0.358-3.74); Uric Acid 6.1 mg/dL (3.5-7.2)
== END ==
PROVIDERS: PCP Family Medicine Geriatric Medicine; Visit Provider Family Medicine Geriatric Medicine
DX: E23.6 Other disorders of pituitary gland (principal); M10.9 Gout, unspecified; R53.83 Other fatigue; E55.9 Vitamin D deficiency, unspecified
CPT/HCPCS: 36415; 80053; 82306; 84403; 84443; 84550; 85025

== ENCOUNTER → 2020-08-25 16:17 | Outpatient (CLI) | payer MEDICARE, SELFPAY ==
[2020-02-16 15:35] VITALS: BMI 26.9
[2020-08-25 16:57] LABS: Absolute Lymphocyte Count 1.67 X10^3/uL (0.83-4.51); Absolute Neutrophil Count 2.4 X10^3/uL (2.0-7.7); Basophil# 0.04 X10^3/uL; Basophil% 0.8 % (0-1); Eosinophil# 0.07 X10^3/uL; Eosinophils% 1.4 % (0-5); Hematocrit 43.6 % (40-54); Hemoglobin 14.3 g/dL (13.0-16.5); Lymphocyte # 1.67 X10^3/ul (0.83-4.51); Lymphocyte % 34.5 % (19-41); Mean Corp Hgb Conc 32.8 g/dL (32-36); Mean Corpuscular Hgb 32.9 pg (27.0-32.0); Mean Corpuscular Volume 100.2 fL (80-94); Mean Platelet Vol. 10.8 fl (6.2-12.0); Monocyte# 0.62 X10^3/uL; Monocyte% 12.8 % (0-10); NRBC Flagged by Analyzer 0 % (0-5); Neutrophil # 2.43 X10^3/uL (2.7-7.7); Neutrophil % 50.3 % (47-70); Platelet Count 141 K/mm3 (150-450); RBC Distribution Width CV 12.4 % (11.6-14.6); RBC Distribution Width SD 46.3 fl (35.1-43.9); Red Blood Count 4.35 M/mm3 (4.6-6.2); White Blood Count 4.8 K/mm3 (4.4-11.0)
[2020-08-25 17:40] LABS: ALB/GLOB Ratio 1.4 RATIO (0.9-2.4); AST(SGOT) 18 U/L (15-37); Alanine Aminotransfer ALT/SGPT 21 U/L (16-61); Alkaline Phosphatase 80 U/L (45-117); Anion Gap 5 (5-15); BUN 24 mg/dL (7-18); BUN/Creat Ratio 18.3 RATIO (10-20); Calcium,Total 8.9 mg/dL (8.5-10.1); Chloride 107 mmol/L (98-107); Creatinine, Serum 1.31 mg/dL (0.70-1.30); EST Glomerular Filtration Rate 55 mL/min (>60); Est Glom Filt Rate - Afr Amer 67 mL/min (>60); Globulin 2.8 g/dL (2.2-4.2); Glucose 78 mg/dL (74-106); Potassium 4.5 mmol/L (3.5-5.1); Protein, Total 6.8 g/dL (6.4-8.2); Sodium Level 140 mmol/L (136-145); Thyroid Stim Hormone (TSH) 1.71 uIU/mL (0.358-3.74)
[2020-08-25 17:44] LABS: Vitamin D,25 Hydroxy 30.9 ng/mL
== END ==
PROVIDERS: PCP Family Medicine Geriatric Medicine; Visit Provider Family Medicine Geriatric Medicine
DX: E55.9 Vitamin D deficiency, unspecified (principal); E23.6 Other disorders of pituitary gland; M10.9 Gout, unspecified; R53.83 Other fatigue
CPT/HCPCS: 36415; 80053; 82306; 84443; 85025

== ENCOUNTER → 2021-01-11 10:21 | Outpatient (CLI) | payer MEDICARE, SELFPAY ==
[2018-09-12 11:37] VITALS: BMI 25.9
[2021-01-11 12:49] LABS: Albumin, Serum 3.6 g/dL (3.2-5.0); BUN 23 mg/dL (7-18); BUN/Creat Ratio 18.3 RATIO (10-20); Calcium,Total 8.8 mg/dL (8.5-10.1); Chloride 105 mmol/L (98-107); Creatinine, Serum 1.26 mg/dL (0.70-1.30); EST Glomerular Filtration Rate 58 mL/min (>60); Est Glom Filt Rate - Afr Amer 70 mL/min (>60); Glucose 98 mg/dL (74-106); Phosphorus 2.7 mg/dL (2.5-4.9); Potassium 4.4 mmol/L (3.5-5.1); Sodium Level 139 mmol/L (136-145)
== END ==
PROVIDERS: PCP Family Medicine Geriatric Medicine; Visit Provider Internal Medicine Nephrology
DX: N18.31 Chronic kidney disease, stage 3a (principal)
CPT/HCPCS: 36415; 80069

== ENCOUNTER → 2021-02-23 11:15 | Outpatient (CLI) | payer MEDICARE, SELFPAY ==
[2021-02-23 12:37] LABS: Absolute Lymphocyte Count 1.32 X10^3/uL (0.83-4.51); Absolute Neutrophil Count 2.1 X10^3/uL (2.0-7.7); Basophil# 0.06 X10^3/uL; Basophil% 1.5 % (0-1); Eosinophil# 0.14 X10^3/uL; Eosinophils% 3.4 % (0-5); Hematocrit 43.3 % (40-54); Hemoglobin 14.4 g/dL (13.0-16.5); Lymphocyte # 1.32 X10^3/ul (0.83-4.51); Lymphocyte % 32.4 % (19-41); Mean Corp Hgb Conc 33.3 g/dL (32-36); Mean Corpuscular Volume 99.1 fL (80-94); Mean Platelet Vol. 10.6 fl (6.2-12.0); Monocyte% 12.3 % (0-10); NRBC Flagged by Analyzer 0 % (0-5); Neutrophil # 2.05 X10^3/uL (2.7-7.7); Neutrophil % 50.2 % (47-70); Platelet Count 144 K/mm3 (150-450); RBC Distribution Width CV 12.3 % (11.6-14.6); Red Blood Count 4.37 M/mm3 (4.6-6.2); White Blood Count 4.1 K/mm3 (4.4-11.0)
[2021-02-23 12:51] LABS: Vitamin D,25 Hydroxy 23.5 ng/mL
[2021-02-23 13:00] LABS: ALB/GLOB Ratio 1.3 RATIO (0.9-2.4); AST(SGOT) 14 U/L (15-37); Alanine Aminotransfer ALT/SGPT 20 U/L (16-61); Albumin, Serum 3.7 g/dL (3.2-5.0); Alkaline Phosphatase 77 U/L (45-117); Anion Gap 8 (5-15); BUN 21 mg/dL (7-18); BUN/Creat Ratio 14.7 RATIO (10-20); Calcium,Total 8.7 mg/dL (8.5-10.1); Chloride 106 mmol/L (98-107); Creatinine, Serum 1.43 mg/dL (0.70-1.30); EST Glomerular Filtration Rate 50 mL/min (>60); Est Glom Filt Rate - Afr Amer 60 mL/min (>60); Globulin 2.9 g/dL (2.2-4.2); Glucose 92 mg/dL (74-106); Potassium 4.4 mmol/L (3.5-5.1); Protein, Total 6.6 g/dL (6.4-8.2); Sodium Level 140 mmol/L (136-145); Thyroid Stim Hormone (TSH) 2.12 uIU/mL (0.358-3.74); Uric Acid 6.1 mg/dL (3.5-7.2)
== END ==
PROVIDERS: PCP Family Medicine Geriatric Medicine; Visit Provider Family Medicine Geriatric Medicine
DX: E23.6 Other disorders of pituitary gland (principal); M10.9 Gout, unspecified; E55.9 Vitamin D deficiency, unspecified; R53.83 Other fatigue
CPT/HCPCS: 36415; 80053; 82306; 84403; 84443; 84550; 85025

== ENCOUNTER → 2021-08-31 | Outpatient (CLI) | payer MEDICARE, SELFPAY ==
[2021-08-31 11:47] LABS: Absolute Lymphocyte Count 1.38 X10^3/uL (0.83-4.51); Absolute Neutrophil Count 2.9 X10^3/uL (2.0-7.7); Basophil# 0.06 X10^3/uL; Basophil% 1.2 % (0-1); Eosinophil# 0.12 X10^3/uL; Eosinophils% 2.4 % (0-5); Hemoglobin 14.1 g/dL (13.0-16.5); Lymphocyte # 1.38 X10^3/ul (0.83-4.51); Lymphocyte % 28.1 % (19-41); Mean Corp Hgb Conc 33.6 g/dL (32-36); Mean Corpuscular Hgb 33.1 pg (27.0-32.0); Mean Corpuscular Volume 98.6 fL (80-94); Mean Platelet Vol. 10.6 fl (6.2-12.0); Monocyte# 0.48 X10^3/uL; Monocyte% 9.8 % (0-10); NRBC Flagged by Analyzer 0 % (0-5); Neutrophil # 2.85 X10^3/uL (2.7-7.7); Neutrophil % 58.1 % (47-70); Platelet Count 134 K/mm3 (150-450); RBC Distribution Width CV 12.7 % (11.6-14.6); RBC Distribution Width SD 45.3 fl (35.1-43.9); Red Blood Count 4.26 M/mm3 (4.6-6.2); White Blood Count 4.9 K/mm3 (4.4-11.0)
[2021-08-31 12:13] LABS: ALB/GLOB Ratio 1.3 RATIO (0.9-2.4); AST(SGOT) 17 U/L (15-37); Alanine Aminotransfer ALT/SGPT 20 U/L (16-61); Albumin, Serum 3.6 g/dL (3.2-5.0); Alkaline Phosphatase 70 U/L (45-117); Anion Gap 5 (5-15); BUN 27 mg/dL (7-18); BUN/Creat Ratio 16.5 RATIO (10-20); Calcium,Total 8.7 mg/dL (8.5-10.1); Chloride 106 mmol/L (98-107); Creatinine, Serum 1.64 mg/dL (0.70-1.30); EST Glomerular Filtration Rate 43 mL/min (>60); Est Glom Filt Rate - Afr Amer 51 mL/min (>60); Globulin 2.7 g/dL (2.2-4.2); Glucose 133 mg/dL (74-106); Potassium 4.4 mmol/L (3.5-5.1); Protein, Total 6.3 g/dL (6.4-8.2); Sodium Level 138 mmol/L (136-145); Thyroid Stim Hormone (TSH) 2.46 uIU/mL (0.358-3.74); Uric Acid 6.9 mg/dL (3.5-7.2); Vitamin D,25 Hydroxy 29.5 ng/mL
== END | disposition home or self-care (01) ==
LOC: POLAB3 11:02
PROVIDERS: PCP Family Medicine Geriatric Medicine; Visit Provider Family Medicine Geriatric Medicine
DX: R53.83 Other fatigue (principal); E23.6 Other disorders of pituitary gland; E55.9 Vitamin D deficiency, unspecified; M10.9 Gout, unspecified
CPT/HCPCS: 36415; 80053; 82306; 84403; 84443; 84550; 85025

== ENCOUNTER 2021-10-06 17:06 | Outpatient (CLI) | payer MEDICARE, SELFPAY ==
[2021-10-06 17:34] VITALS: BP 134/73; PULSE 66; RESP 16; TEMP 37.1; O2SAT 97; BMI 27.2
[2021-10-06] MEDS: 0.9% Saline Lock 10 ML Syringe IV (17:53)
[2021-10-06] MEDS: BEBTELOVIMAB 175 MG/2 ML VIAL IV (17:53)
[2021-10-06 18:30] VITALS: BP 133/75; PULSE 67; RESP 16; TEMP 36.8; O2SAT 97
[2021-10-06 18:56] VITALS: BP 123/75; PULSE 64; RESP 16; TEMP 37; O2SAT 98
== END 2021-10-06 18:57 | disposition home or self-care (01) ==
LOC: MS3OUT 17:07 → MS2OUT 17:20 → MS2 17:21
PROVIDERS: PCP Family Medicine Geriatric Medicine; Visit Provider Nurse Practitioner Adult Health
DX: U07.1 COVID-19 (principal); R68.83 Chills (without fever)
CPT/HCPCS: 87426; M0222; Q0222; A4216

== ENCOUNTER → 2021-10-06 | Outpatient (CLI) | payer MEDICARE, SELFPAY | END | disposition home or self-care (01) | PROVIDERS: PCP Family Medicine Geriatric Medicine; Referring Provider Family Medicine Geriatric Medicine; Visit Provider Family Medicine Geriatric Medicine | DX: U07.1 COVID-19 (principal); R68.83 Chills (without fever) | CPT/HCPCS: 87426 ==

== ENCOUNTER → 2021-12-08 | Outpatient (CLI) | payer MEDICARE, SELFPAY ==
[2021-12-08 11:58] LABS: Absolute Lymphocyte Count 1.48 X10^3/uL (0.83-4.51); Absolute Neutrophil Count 2.5 X10^3/uL (2.0-7.7); Basophil# 0.05 X10^3/uL; Basophil% 1.1 % (0-1); Eosinophil# 0.21 X10^3/uL; Eosinophils% 4.4 % (0-5); Hematocrit 40.8 % (40-54); Hemoglobin 13.2 g/dL (13.0-16.5); Lymphocyte # 1.48 X10^3/ul (0.83-4.51); Lymphocyte % 31.2 % (19-41); Mean Corp Hgb Conc 32.4 g/dL (32-36); Mean Corpuscular Hgb 32.3 pg (27.0-32.0); Mean Corpuscular Volume 99.8 fL (80-94); Monocyte# 0.53 X10^3/uL; Monocyte% 11.2 % (0-10); NRBC Flagged by Analyzer 0 % (0-5); Neutrophil # 2.46 X10^3/uL (2.7-7.7); Neutrophil % 51.7 % (47-70); Platelet Count 152 K/mm3 (150-450); RBC Distribution Width CV 12.9 % (11.6-14.6); RBC Distribution Width SD 47.4 fl (35.1-43.9); Red Blood Count 4.09 M/mm3 (4.6-6.2); White Blood Count 4.8 K/mm3 (4.4-11.0)
[2021-12-08 12:19] LABS: Vitamin D,25 Hydroxy 27.2 ng/mL
[2021-12-08 12:32] LABS: ALB/GLOB Ratio 1.2 RATIO (0.9-2.4); AST(SGOT) 17 U/L (15-37); Alanine Aminotransfer ALT/SGPT 18 U/L (16-61); Albumin, Serum 3.4 g/dL (3.2-5.0); Alkaline Phosphatase 66 U/L (45-117); Anion Gap 7 (5-15); BUN 20 mg/dL (7-18); BUN/Creat Ratio 14.4 RATIO (10-20); Calcium,Total 8.7 mg/dL (8.5-10.1); Chloride 107 mmol/L (98-107); Creatinine, Serum 1.39 mg/dL (0.70-1.30); EST Glomerular Filtration Rate 51 mL/min (>60); Est Glom Filt Rate - Afr Amer 62 mL/min (>60); Globulin 2.9 g/dL (2.2-4.2); Glucose 98 mg/dL (74-106); Potassium 4.3 mmol/L (3.5-5.1); Protein, Total 6.3 g/dL (6.4-8.2); Sodium Level 140 mmol/L (136-145); Thyroid Stim Hormone (TSH) 2.32 uIU/mL (0.358-3.74); Uric Acid 6.8 mg/dL (3.5-7.2)
== END | disposition home or self-care (01) ==
LOC: POLAB3 09:13
PROVIDERS: PCP Family Medicine Geriatric Medicine; Visit Provider Family Medicine Geriatric Medicine
DX: R53.83 Other fatigue (principal); E23.6 Other disorders of pituitary gland; E55.9 Vitamin D deficiency, unspecified; M10.9 Gout, unspecified
CPT/HCPCS: 36415; 80053; 82306; 84403; 84443; 84550; 85025

== ENCOUNTER → 2021-12-19 | Outpatient (CLI) | payer MEDICARE, SELFPAY ==
--- NOTE | 2021-12-19 12:25 | RAD_ITS ---
HISTORY: Other intervertebral disc degeneration, lumbosacral region. TECHNIQUE: XR Spine Lumbar 2 or 3 Views. COMPARISON: 09/05/2017. FINDINGS: VERTEBRAE: Vertebral body heights unchanged. Degenerative changes of the posterior elements. ALIGNMENT: No significant anterior or posterior subluxation. Mild scoliosis again seen. INTERVERTEBRAL DISCS: Degenerative endplate changes with osteophytes, sclerosis, and vacuum disc phenomenon mildly progressed from prior. RAD/Lumbar Spine 2 or 3 Views IMPRESSION: No acute fracture or dislocation identified in the lumbar spine. Multilevel degenerative change. Electronically Signed: Lien Simmons MD at 14:45 EDT ,
== END | disposition home or self-care (01) ==
PROVIDERS: PCP Family Medicine Geriatric Medicine; Referring Provider Anesthesiology Pain Medicine; Visit Provider Anesthesiology Pain Medicine
DX: M51.36 Other intervertebral disc degeneration, lumbar region (principal); M51.37 Other intervertebral disc degeneration, lumbosacral region
CPT/HCPCS: 72100

== ENCOUNTER 2022-01-09 13:00 | Outpatient (RCR) | payer MEDICARE, SELFPAY ==
--- NOTE | 2021-12-26 13:45 | HP.PTEVAL ---
Patient's Visit Information BRY VO is a 86 year old M referred to Physical Therapy by Dr. Merlene Ren MD with a diagnosis of Lumbar Pain. Date of Evaluation: 12/26/21 Physical Therapist: Helen Killian DPT - Visit Plan Frequency: 2x /Week Duration: 4 Weeks Plan: Focus on LE and Core Strength/Stabilization. HEP Given IE: TA contraction, bridge, hip add, hip abd with green tband, hamstring stretch 90/90. *Pt is hard of hearing* - Subjective Patient reports that he had an injection in his lumbar spine about a week ago. This is the first injection he has had in a long time. The injection did not help and he still has pain on the left and right side of the low back. Insidious onset- no trauma. No radiating pain. Worst: 08/26 Agg: sleeping and movement. Eases: Tylenol or sitting down Best: 10 Describes the pain at times as sharp and other times its more dull and achy. Sleep: wakes him up and he is a back sleeper. X-rays show degenerative changes- no MRI at this time. No N/T in the toes. Normally pretty active- he walks daily- no weight training. He has stairs to the basement and only goes down occasionally but that does not bother him. He has never had therapy for his back before. He sits a lot in his soft recliner and that makes it feel better. PMHx/Meds: no changes since saw 10/06/21 in chart - Objective Posture: FH, RS- can correct but does not maintain. Gait: poor posture but good arm swing and trunk rotation. HR/TR: able with UE A. SLS: 3 sec then LOB bilateral. Sensation: WNL to gross touch bilateral LE. ROM: Lumbar Flexion: hands to top of [place], Extn: neutral, SB and Rotation: WNL, Hip: Flexion bilateral increases pain but is WFL, Knee/Ankle: WFL. Strength: Core: fair minus. Hip: 4/5 throughout, Knee: 5/5 Ankle: 5/5. Repeated Flexion: increased symptoms in both sitting and lying. Repeated Extn: increased symptoms in standing and prone. - Balance/Special Test Scores Oswestry Low Back Score: 18 - Goals Goal 1:: Patient will be I with HEP and progression Goal Time Frame: 4-6 Weeks Goal 2:: Patient will maintain proper posture t/o tx session to demo increased core s/s Goal Time Frame: 4-6 Weeks Goal 3:: Patient will report 80% improvement Goal Time Frame: 4-6 Weeks - Rehabilitation Potential Physical Therapy Diagnosis: Patient presents with hypomobility- he has decreased LE and core strength/stabilization, flex and muscular endurance leading to poor posture and increased pain with ADL's. Rehabilitation Potential: Fair - Anticipated Interventions Patient/Client Instruction: Educate patient on: Benefits of Fitness Program Therapeutic Exercise to Include: Strength training, Endurance training, Balance training, Coordination, Agility training, Body mechanics, Postural training, Flexibilty training, Gait and locomotor training, Neuromotor development, Dynamic Lumbar Stabilization, Scapular Strength/Stabilization For the Purpose of:: To improve muscle performance and motor function TENS: Yes Cryotherapy (ice pack, ice massage): Yes Thermo therapy (hot pack): Yes Ultrasound (thermal/non thermal): No Thank you for the opportunity to evaluate your patient. For Medicare and Medicare HMO plans, please review the plan of care and approve it. It will need to be FAXED BACK to us at [phone] for Medicare purposes. For Medicare only, by signing this I certify the plan of care. Please let me know if there are questions or concerns regarding this plan of care. Physician Signature: Date:
--- NOTE | 2022-02-16 08:00 | HP.PT.NRP ---
BRY VO was seen in my office for initial evaluation on 12/26/21. The following Plan of Care was established for this patient: Initial Frequency: 2x /Week Initial Duration: 4 Weeks Patient/Client Instruction: Educate patient on: Benefits of Fitness Program Therapeutic Exercise to Include: Strength training, Endurance training, Balance training, Coordination, Agility training, Body mechanics, Postural training, Flexibilty training, Gait and locomotor training, Neuromotor development, Dynamic Lumbar Stabilization, Scapular Strength/Stabilization For the Purpose of:: To improve muscle performance and motor function TENS: Yes Cryotherapy (ice pack, ice massage): Yes Thermo therapy (hot pack): Yes Ultrasound (thermal/non thermal): No This patient was last seen in our office . Pertinent comments regarding their Physical therapy will appear below: Patient has not attended physical therapy in over 30 days- at this time d/c is appropriate and return to the MD for further evaluation as needed At this point I will be discontinuing this patient from physical therapy. I would be happy to see this patient again in the future if found appropriate by the physician. Thank you! Helen Killian DPT Balance/Gait/Functional tests - Balance/Special Test Scores Oswestry Low Back Score: 18
== END 2022-01-09 19:00 | disposition home or self-care (01) ==
LOC: PT 13:00
PROVIDERS: PCP Family Medicine Geriatric Medicine; Referring Provider Anesthesiology Pain Medicine; Visit Provider Anesthesiology Pain Medicine
DX: M54.50 Low back pain, unspecified (principal)
CPT/HCPCS: 97110; 97162

== ENCOUNTER → 2022-03-01 | Outpatient (CLI) | payer MEDICARE, SELFPAY ==
[2022-03-01 13:05] LABS: Absolute Lymphocyte Count 1.42 X10^3/uL (0.83-4.51); Absolute Neutrophil Count 3.2 X10^3/uL (2.0-7.7); Basophil# 0.05 X10^3/uL; Basophil% 0.9 % (0-1); Eosinophils% 1.9 % (0-5); Hematocrit 42.4 % (40-54); Hemoglobin 14.3 g/dL (13.0-16.5); Lymphocyte # 1.42 X10^3/ul (0.83-4.51); Lymphocyte % 26.6 % (19-41); Mean Corp Hgb Conc 33.7 g/dL (32-36); Mean Corpuscular Hgb 33.6 pg (27.0-32.0); Mean Corpuscular Volume 99.8 fL (80-94); Mean Platelet Vol. 10.8 fl (6.2-12.0); Monocyte# 0.54 X10^3/uL; Monocyte% 10.1 % (0-10); NRBC Flagged by Analyzer 0 % (0-5); Neutrophil % 60.1 % (47-70); Platelet Count 143 K/mm3 (150-450); RBC Distribution Width CV 12.8 % (11.6-14.6); RBC Distribution Width SD 46.7 fl (35.1-43.9); Red Blood Count 4.25 M/mm3 (4.6-6.2); White Blood Count 5.3 K/mm3 (4.4-11.0)
[2022-03-01 13:22] LABS: Vitamin D,25 Hydroxy 18.2 ng/mL
[2022-03-01 13:43] LABS: ALB/GLOB Ratio 1.2 RATIO (0.9-2.4); AST(SGOT) 16 U/L (15-37); Alanine Aminotransfer ALT/SGPT 21 U/L (16-61); Albumin, Serum 3.5 g/dL (3.2-5.0); Alkaline Phosphatase 79 U/L (45-117); Anion Gap 8 (5-15); BUN 26 mg/dL (7-18); BUN/Creat Ratio 19.8 RATIO (10-20); Calcium,Total 8.7 mg/dL (8.5-10.1); Chloride 107 mmol/L (98-107); Creatinine, Serum 1.31 mg/dL (0.70-1.30); EST Glomerular Filtration Rate 55 mL/min (>60); Est Glom Filt Rate - Afr Amer 67 mL/min (>60); Globulin 2.9 g/dL (2.2-4.2); Glucose 141 mg/dL (74-106); Potassium 4.5 mmol/L (3.5-5.1); Protein, Total 6.4 g/dL (6.4-8.2); Sodium Level 140 mmol/L (136-145); Thyroid Stim Hormone (TSH) 1.91 uIU/mL (0.358-3.74); Uric Acid 6.8 mg/dL (3.5-7.2)
== END | disposition home or self-care (01) ==
LOC: POLAB3 11:18
PROVIDERS: PCP Family Medicine Geriatric Medicine; Visit Provider Family Medicine Geriatric Medicine
DX: E55.9 Vitamin D deficiency, unspecified (principal); I10 Essential (primary) hypertension
CPT/HCPCS: 36415; 80053; 82306; 84443; 84550; 85025

== ENCOUNTER → 2022-04-06 | Outpatient (CLI) | payer MEDICARE, SELFPAY ==
[2022-04-06 13:17] LABS: Absolute Lymphocyte Count 1.55 X10^3/uL (0.83-4.51); Absolute Neutrophil Count 2.3 X10^3/uL (2.0-7.7); Basophil# 0.05 X10^3/uL; Basophil% 1.1 % (0-1); Eosinophil# 0.14 X10^3/uL; Hematocrit 43.9 % (40-54); Hemoglobin 14.5 g/dL (13.0-16.5); Lymphocyte # 1.55 X10^3/ul (0.83-4.51); Lymphocyte % 33.2 % (19-41); Mean Corpuscular Hgb 32.9 pg (27.0-32.0); Mean Corpuscular Volume 99.5 fL (80-94); Mean Platelet Vol. 11.4 fl (6.2-12.0); Monocyte# 0.58 X10^3/uL; Monocyte% 12.4 % (0-10); NRBC Flagged by Analyzer 0 % (0-5); Neutrophil # 2.33 X10^3/uL (2.7-7.7); Neutrophil % 49.9 % (47-70); Platelet Count 147 K/mm3 (150-450); RBC Distribution Width CV 12.2 % (11.6-14.6); RBC Distribution Width SD 44.4 fl (35.1-43.9); Red Blood Count 4.41 M/mm3 (4.6-6.2); White Blood Count 4.7 K/mm3 (4.4-11.0)
[2022-04-06 13:34] LABS: Vitamin D,25 Hydroxy 26.7 ng/mL
[2022-04-06 13:46] LABS: ALB/GLOB Ratio 1.4 RATIO (0.9-2.4); AST(SGOT) 16 U/L (15-37); Alanine Aminotransfer ALT/SGPT 19 U/L (16-61); Albumin, Serum 3.7 g/dL (3.2-5.0); Alkaline Phosphatase 67 U/L (45-117); Anion Gap 5 (5-15); BUN 19 mg/dL (7-18); BUN/Creat Ratio 14.6 RATIO (10-20); Calcium,Total 8.8 mg/dL (8.5-10.1); Chloride 106 mmol/L (98-107); EST Glomerular Filtration Rate 56 mL/min (>60); Est Glom Filt Rate - Afr Amer 67 mL/min (>60); Globulin 2.6 g/dL (2.2-4.2); Glucose 94 mg/dL (74-106); Potassium 4.5 mmol/L (3.5-5.1); Protein, Total 6.3 g/dL (6.4-8.2); Sodium Level 138 mmol/L (136-145); Thyroid Stim Hormone (TSH) 1.83 uIU/mL (0.358-3.74)
== END | disposition home or self-care (01) ==
LOC: POLAB3 11:02
PROVIDERS: PCP Family Medicine Geriatric Medicine; Visit Provider Family Medicine Geriatric Medicine
DX: R53.83 Other fatigue (principal); E55.9 Vitamin D deficiency, unspecified
CPT/HCPCS: 36415; 80053; 82306; 84443; 85025

== ENCOUNTER → 2022-09-04 | Outpatient (CLI) | payer MEDICARE, SELFPAY ==
[2022-09-04 12:41] LABS: Vitamin D,25 Hydroxy 35.4 ng/mL
[2022-09-04 12:48] LABS: ALB/GLOB Ratio 1.1 RATIO (0.9-2.4); AST(SGOT) 18 U/L (15-37); Alanine Aminotransfer ALT/SGPT 23 U/L (16-61); Albumin, Serum 3.7 g/dL (3.2-5.0); Alkaline Phosphatase 91 U/L (45-117); Anion Gap 5 (5-15); BUN 24 mg/dL (7-18); BUN/Creat Ratio 18.3 RATIO (10-20); Calcium,Total 9.3 mg/dL (8.5-10.1); Chloride 109 mmol/L (98-107); Creatinine, Serum 1.31 mg/dL (0.70-1.30); EST Glomerular Filtration Rate 55 mL/min (>60); Est Glom Filt Rate - Afr Amer 66 mL/min (>60); Globulin 3.3 g/dL (2.2-4.2); Glucose 105 mg/dL (74-106); Potassium 5.2 mmol/L (3.5-5.1); Sodium Level 139 mmol/L (136-145); Thyroid Stim Hormone (TSH) 1.28 uIU/mL (0.358-3.74)
[2022-09-04 12:54] LABS: Absolute Lymphocyte Count 1.62 X10^3/uL (0.83-4.51); Absolute Neutrophil Count 3.1 X10^3/uL (2.0-7.7); Basophil# 0.07 X10^3/uL; Basophil% 1.2 % (0-1); Eosinophil# 0.07 X10^3/uL; Eosinophils% 1.2 % (0-5); Hematocrit 46.7 % (40-54); Hemoglobin 15.2 g/dL (13.0-16.5); Lymphocyte # 1.62 X10^3/ul (0.83-4.51); Lymphocyte % 28.9 % (19-41); Mean Corp Hgb Conc 32.5 g/dL (32-36); Mean Corpuscular Hgb 32.9 pg (27.0-32.0); Mean Corpuscular Volume 101.1 fL (80-94); Mean Platelet Vol. 10.6 fl (6.2-12.0); Monocyte% 12.5 % (0-10); NRBC Flagged by Analyzer 0 % (0-5); Neutrophil # 3.12 X10^3/uL (2.7-7.7); Neutrophil % 55.7 % (47-70); Platelet Count 157 K/mm3 (150-450); RBC Distribution Width CV 12.6 % (11.6-14.6); RBC Distribution Width SD 47.1 fl (35.1-43.9); Red Blood Count 4.62 M/mm3 (4.6-6.2); White Blood Count 5.6 K/mm3 (4.4-11.0)
== END | disposition home or self-care (01) ==
LOC: LAB 11:49
PROVIDERS: PCP Family Medicine Geriatric Medicine; Referring Provider Family Medicine Geriatric Medicine; Visit Provider Family Medicine Geriatric Medicine
DX: E11.65 Type 2 diabetes mellitus with hyperglycemia (principal); R53.83 Other fatigue; E55.9 Vitamin D deficiency, unspecified
CPT/HCPCS: 36415; 80053; 82306; 84443; 85025

== ENCOUNTER → 2022-09-06 | Outpatient (CLI) | payer MEDICARE, SELFPAY ==
[2022-09-06 13:51] LABS: Anion Gap 4 (5-15); BUN 25 mg/dL (7-18); BUN/Creat Ratio 18.5 RATIO (10-20); Calcium,Total 8.7 mg/dL (8.5-10.1); Chloride 108 mmol/L (98-107); Creatinine, Serum 1.35 mg/dL (0.70-1.30); EST Glomerular Filtration Rate 53 mL/min (>60); Est Glom Filt Rate - Afr Amer 64 mL/min (>60); Glucose 153 mg/dL (74-106); Potassium 4.1 mmol/L (3.5-5.1); Sodium Level 139 mmol/L (136-145)
== END | disposition home or self-care (01) ==
LOC: LAB.FUTURE 12:16 → LAB 09-07 06:55
PROVIDERS: PCP Family Medicine Geriatric Medicine; Referring Provider Family Medicine Geriatric Medicine; Visit Provider Family Medicine Geriatric Medicine
DX: E87.5 Hyperkalemia (principal)
CPT/HCPCS: 36415; 80048

== ENCOUNTER → 2023-01-16 | Outpatient (CLI) | payer MEDICARE, SELFPAY ==
[2023-01-16 12:52] LABS: Albumin, Serum 3.7 g/dL (3.2-5.0); BUN 24 mg/dL (7-18); BUN/Creat Ratio 16.4 RATIO (10-20); Calcium,Total 9.1 mg/dL (8.5-10.1); Chloride 110 mmol/L (98-107); Creatinine, Serum 1.46 mg/dL (0.70-1.30); EST Glomerular Filtration Rate 48 mL/min (>60); Est Glom Filt Rate - Afr Amer 59 mL/min (>60); Glucose 108 mg/dL (74-106); Potassium 5.3 mmol/L (3.5-5.1); Sodium Level 139 mmol/L (136-145)
== END | disposition home or self-care (01) ==
LOC: POLAB3 12:02
PROVIDERS: PCP Family Medicine Geriatric Medicine; Visit Provider Internal Medicine Nephrology
DX: N18.31 Chronic kidney disease, stage 3a (principal)
CPT/HCPCS: 36415; 80069

== ENCOUNTER → 2023-03-08 | Outpatient (CLI) | payer MEDICARE, SELFPAY ==
[2023-03-08 12:35] LABS: Absolute Lymphocyte Count 1.69 X10^3/uL (0.83-4.51); Absolute Neutrophil Count 2.5 X10^3/uL (2.0-7.7); Basophil# 0.07 X10^3/uL; Basophil% 1.4 % (0-1); Hematocrit 45.7 % (40-54); Hemoglobin 14.6 g/dL (13.0-16.5); Lymphocyte # 1.69 X10^3/ul (0.83-4.51); Lymphocyte % 34.1 % (19-41); Mean Corp Hgb Conc 31.9 g/dL (32-36); Mean Corpuscular Hgb 32.1 pg (27.0-32.0); Mean Corpuscular Volume 100.4 fL (80-94); Mean Platelet Vol. 10.3 fl (6.2-12.0); Monocyte# 0.58 X10^3/uL; Monocyte% 11.7 % (0-10); NRBC Flagged by Analyzer 0 % (0-5); Neutrophil # 2.51 X10^3/uL (2.7-7.7); Neutrophil % 50.6 % (47-70); Platelet Count 161 K/mm3 (150-450); RBC Distribution Width CV 12.6 % (11.6-14.6); RBC Distribution Width SD 46.5 fl (35.1-43.9); Red Blood Count 4.55 M/mm3 (4.6-6.2)
[2023-03-08 12:54] LABS: Vitamin D,25 Hydroxy 29.2 ng/mL
[2023-03-08 13:02] LABS: ALB/GLOB Ratio 1.2 RATIO (0.9-2.4); AST(SGOT) 15 U/L (15-37); Alanine Aminotransfer ALT/SGPT 17 U/L (16-61); Albumin, Serum 3.7 g/dL (3.2-5.0); Alkaline Phosphatase 82 U/L (45-117); Anion Gap 7 (5-15); BUN 26 mg/dL (7-18); Calcium,Total 9.4 mg/dL (8.5-10.1); Chloride 104 mmol/L (98-107); Creatinine, Serum 1.37 mg/dL (0.70-1.30); EST Glomerular Filtration Rate 52 mL/min (>60); Est Glom Filt Rate - Afr Amer 63 mL/min (>60); Globulin 3.1 g/dL (2.2-4.2); Glucose 107 mg/dL (74-106); Potassium 4.6 mmol/L (3.5-5.1); Protein, Total 6.8 g/dL (6.4-8.2); Sodium Level 139 mmol/L (136-145); Thyroid Stim Hormone (TSH) 1.44 uIU/mL (0.358-3.74)
== END | disposition home or self-care (01) ==
LOC: LAB 11:39
PROVIDERS: PCP Family Medicine Geriatric Medicine; Visit Provider Family Medicine Geriatric Medicine
DX: E11.65 Type 2 diabetes mellitus with hyperglycemia (principal); E55.9 Vitamin D deficiency, unspecified; R53.83 Other fatigue
CPT/HCPCS: 36415; 80053; 82306; 84443; 85025

== ENCOUNTER → 2023-09-10 | Outpatient (CLI) | payer MEDICARE, SELFPAY ==
[2023-09-10 13:20] LABS: Absolute Lymphocyte Count 1.68 X10^3/uL (0.83-4.51); Absolute Neutrophil Count 2.7 X10^3/uL (2.0-7.7); Basophil# 0.05 X10^3/uL; Eosinophil# 0.09 X10^3/uL; Eosinophils% 1.8 % (0-5); Hematocrit 41.3 % (40-54); Hemoglobin 13.2 g/dL (13.0-16.5); Lymphocyte # 1.68 X10^3/ul (0.83-4.51); Lymphocyte % 32.8 % (19-41); Mean Corpuscular Hgb 32.2 pg (27.0-32.0); Mean Corpuscular Volume 100.7 fL (80-94); Mean Platelet Vol. 11.1 fl (6.2-12.0); Monocyte# 0.57 X10^3/uL; Monocyte% 11.1 % (0-10); NRBC Flagged by Analyzer 0 % (0-5); Neutrophil % 52.7 % (47-70); Platelet Count 150 K/mm3 (150-450); RBC Distribution Width CV 12.8 % (11.6-14.6); RBC Distribution Width SD 47.4 fl (35.1-43.9); White Blood Count 5.1 K/mm3 (4.4-11.0)
[2023-09-10 13:48] LABS: Vitamin D,25 Hydroxy 29.5 ng/mL
[2023-09-10 14:09] LABS: ALB/GLOB Ratio 1.1 RATIO (0.9-2.4); AST(SGOT) 34 U/L (15-37); Alanine Aminotransfer ALT/SGPT 17 U/L (16-61); Albumin, Serum 3.5 g/dL (3.2-5.0); Alkaline Phosphatase 134 U/L (45-117); Anion Gap 4 (5-15); BUN 23 mg/dL (7-18); BUN/Creat Ratio 15.1 RATIO (10-20); Calcium,Total 8.7 mg/dL (8.5-10.1); Chloride 108 mmol/L (98-107); Cholesterol 204 mg/dL (200); Creatinine, Serum 1.52 mg/dL (0.70-1.30); EST Glomerular Filtration Rate 46 mL/min (>60); Est Glom Filt Rate - Afr Amer 56 mL/min (>60); Globulin 3.2 g/dL (2.2-4.2); Glucose 101 mg/dL (74-106); High Density Lipoprotein 61 mg/dL; Potassium 4.7 mmol/L (3.5-5.1); Protein, Total 6.7 g/dL (6.4-8.2); Sodium Level 138 mmol/L (136-145); Thyroid Stim Hormone (TSH) 1.84 uIU/mL (0.358-3.74); Triglycerides 150 mg/dL; Very Low Density Lipoprotein 30 mg/dL (5-40)
[2023-09-10 14:17] LABS: Hemoglobin A1c 5.9 % (3.8-5.6)
== END | disposition home or self-care (01) ==
LOC: LAB 12:18
PROVIDERS: PCP Family Medicine Geriatric Medicine; Referring Provider Family Medicine Geriatric Medicine; Visit Provider Family Medicine Geriatric Medicine
DX: R53.83 Other fatigue (principal); E11.65 Type 2 diabetes mellitus with hyperglycemia; E55.9 Vitamin D deficiency, unspecified; E78.5 Hyperlipidemia, unspecified
CPT/HCPCS: 36415; 80053; 80061; 82306; 83036; 84443; 85025

== ENCOUNTER → 2024-01-08 | Outpatient (CLI) | payer MEDICARE, SELFPAY ==
[2024-01-08 11:17] LABS: Hematocrit 39.4 % (40-54); Mean Corpuscular Hgb 33.2 pg (27.0-32.0); Mean Corpuscular Volume 100.8 fL (80-94); Platelet Count 151 K/mm3 (150-450); RBC Distribution Width CV 13.2 % (11.6-14.6); RBC Distribution Width SD 48.7 fl (35.1-43.9); Red Blood Count 3.91 M/mm3 (4.6-6.2); White Blood Count 5.5 K/mm3 (4.4-11.0)
[2024-01-08 11:39] LABS: Albumin, Serum 3.7 g/dL (3.2-5.0); BUN 27 mg/dL (7-18); Chloride 107 mmol/L (98-107); Creatinine, Serum 1.35 mg/dL (0.70-1.30); EST Glomerular Filtration Rate 53 mL/min (>60); Est Glom Filt Rate - Afr Amer 64 mL/min (>60); Glucose 105 mg/dL (74-106); Phosphorus 3.4 mg/dL (2.5-4.9); Potassium 4.5 mmol/L (3.5-5.1); Sodium Level 139 mmol/L (136-145)
== END | disposition home or self-care (01) ==
LOC: LAB 10:52
PROVIDERS: PCP Family Medicine Geriatric Medicine; Referring Provider Internal Medicine Nephrology; Visit Provider Internal Medicine Nephrology
DX: N18.31 Chronic kidney disease, stage 3a (principal)
CPT/HCPCS: 36415; 80069; 85027

== ENCOUNTER → 2024-03-06 | Outpatient (CLI) | payer MEDICARE, SELFPAY ==
[2024-03-06 10:56] LABS: Absolute Lymphocyte Count 1.62 X10^3/uL (0.83-4.51); Absolute Neutrophil Count 2.4 X10^3/uL (2.0-7.7); Basophil# 0.06 X10^3/uL; Basophil% 1.3 % (0-1); Eosinophil# 0.15 X10^3/uL; Eosinophils% 3.1 % (0-5); Hematocrit 41.9 % (40-54); Hemoglobin 13.6 g/dL (13.0-16.5); Lymphocyte # 1.62 X10^3/ul (0.83-4.51); Lymphocyte % 33.8 % (19-41); Mean Corp Hgb Conc 32.5 g/dL (32-36); Mean Corpuscular Hgb 33.3 pg (27.0-32.0); Mean Corpuscular Volume 102.4 fL (80-94); Monocyte# 0.57 X10^3/uL; Monocyte% 11.9 % (0-10); NRBC Flagged by Analyzer 0 % (0-5); Neutrophil # 2.36 X10^3/uL (2.7-7.7); Neutrophil % 49.3 % (47-70); Platelet Count 145 K/mm3 (150-450); RBC Distribution Width SD 49.1 fl (35.1-43.9); Red Blood Count 4.09 M/mm3 (4.6-6.2); White Blood Count 4.8 K/mm3 (4.4-11.0)
[2024-03-06 11:42] LABS: Vitamin D,25 Hydroxy 24.6 ng/mL
[2024-03-06 11:58] LABS: ALB/GLOB Ratio 1.2 RATIO (0.9-2.4); AST(SGOT) 13 U/L (15-37); Alanine Aminotransfer ALT/SGPT 18 U/L (16-61); Albumin, Serum 3.5 g/dL (3.2-5.0); Alkaline Phosphatase 72 U/L (45-117); Anion Gap 2 (5-15); BUN 25 mg/dL (7-18); BUN/Creat Ratio 17.1 RATIO (10-20); Calcium,Total 8.8 mg/dL (8.5-10.1); Chloride 109 mmol/L (98-107); Cholesterol 206 mg/dL (200); Creatinine, Serum 1.46 mg/dL (0.70-1.30); EST Glomerular Filtration Rate 48 mL/min (>60); Est Glom Filt Rate - Afr Amer 58 mL/min (>60); Globulin 2.9 g/dL (2.2-4.2); Glucose 106 mg/dL (74-106); High Density Lipoprotein 71 mg/dL; Potassium 4.1 mmol/L (3.5-5.1); Protein, Total 6.4 g/dL (6.4-8.2); Sodium Level 139 mmol/L (136-145); Triglycerides 99 mg/dL; Very Low Density Lipoprotein 20 mg/dL (5-40)
== END | disposition home or self-care (01) ==
LOC: POLAB3 10:27
PROVIDERS: PCP Family Medicine Geriatric Medicine; Visit Provider Family Medicine Geriatric Medicine
DX: E11.22 Type 2 diabetes mellitus with diabetic chronic kidney disease (principal); N18.31 Chronic kidney disease, stage 3a; E78.5 Hyperlipidemia, unspecified; R53.83 Other fatigue; E55.9 Vitamin D deficiency, unspecified
CPT/HCPCS: 36415; 80053; 80061; 82306; 83036; 84443; 85025

== ENCOUNTER → 2024-09-24 | Outpatient (CLI) | payer MEDICARE, SELFPAY ==
--- NOTE | 2024-09-24 15:38 | VDLE_ITS ---
Reason For Study Reason For Study: Pain/Swelling RIGHT LEFT CFV is compressible, spontaneous, phasic, competent GSV is normal. and demonstrates normal augmentation. CFV is compressible, spontaneous, phasic, competent, Procedure and demonstrates normal augmentation. This is a venous duplex using B-mode, color flow and Prox and Mid FV is compressible, spontaneous, phasic, spectral Doppler. competent and demonstrates normal augmentation. Exam performed in department. Dist FV and SSV are PARTIALLY COMPRESSIBLE with A preliminary report was called and/or faxed to Arpit garner intraluminal echoes consistent with oscar Parkinson MD. DVT. POP V is compressible, spontaneous, phasic, competent and demonstrates normal augmentation. T/P Trunk is compressible. PTV is compressible. LT PerV is compressible. VL/Venous Duplex US, Unilateral Interpretation Summary Chronic deep vein thrombosis noted in the left femoral vein. Chronic superficial vein thrombosis noted in the left small saphenous vein. Ordering Physician: Arpit Parkinson Chi Referring Physician: Arpit Parkinson Chi Performed By: Amy Toth, RVT
[2024-09-24 16:28] LABS: Hematocrit 38.6 % (40-54); Hemoglobin 12.5 g/dL (13.0-16.5); Immature Granulocytes Count 0.020 X10^3/uL (0.0-0.0); Mean Corp Hgb Conc 32.4 g/dL (32-36); Mean Corpuscular Volume 101.6 fL (80-94); Mean Platelet Vol. 10.7 fl (6.2-12.0); NRBC Flagged by Analyzer 0 % (0-5); Platelet Count 145 K/mm3 (150-450); RBC Distribution Width CV 12.6 % (11.6-14.6); RBC Distribution Width SD 47.1 fl (35.1-43.9); Red Blood Count 3.80 M/mm3 (4.6-6.2); White Blood Count 5.2 K/mm3 (4.4-11.0)
[2024-09-24 17:13] LABS: Anion Gap 12 (5-15); BUN 24 mg/dL (4-19); BUN/Creat Ratio 19.8 RATIO (10-20); CRP 31.10 mg/L (0.0-3.0); Calcium,Total 9.1 mg/dL (7.6-11.0); Carbon Dioxide 22.4 mmol/L (21.0-32.0); Chloride 104 mmol/L (98-108); Glucose 124 mg/dL (70-99); Potassium 4.7 mmol/L (3.3-5.1)
[2024-09-24 19:01] LABS: D-Dimer Quantitative (DVT/PE) 0.69 FEU/ug/m (0.27-0.49)
== END | disposition home or self-care (01) ==
PROVIDERS: PCP Family Medicine Geriatric Medicine; Referring Provider Family Medicine Geriatric Medicine; Visit Provider Family Medicine Geriatric Medicine
DX: I82.512 Chronic embolism and thrombosis of left femoral vein (principal); I82.812 Embolism and thrombosis of superficial veins of left lower extremity; M79.89 Other specified soft tissue disorders; M79.605 Pain in left leg; L03.116 Cellulitis of left lower limb
CPT/HCPCS: 36415; 80048; 85025; 85379; 85652; 86140; 93971